=== PATIENT | female | born 1965 | race Caucasian/White ===

== ENCOUNTER 2019-01-26 18:17 | Emergency (ER) | payer MEDICAID ==
--- OUTSIDE RECORDS SUMMARY | 2019-01-26 18:19 | XMS REPORT ---
:1965 [facility] [address] [place] [address] Care Team Providers Name Role Phone Unavailable Unavailable Unavailable Problems This patient has no known problems. Allergies, Adverse Reactions, Alerts This patient has no known allergies or adverse reactions. Medications This patient has no known medications.
[2019-01-26] MEDS ORDERED: ONDANSETRON 4 MG/2 ML VIAL ONE (18:40)
[2019-01-26] MEDS ORDERED: FENTANYL CITR 100 MCG/2 ML ONE (18:40)
[2019-01-26] MEDS ORDERED: NA CHLORIDE 0.9% 1,000 ML ONE (18:40)
[2019-01-26 18:52] LABS: Absolute Lymphocytes (CBC) 2.6 K/uL (0.7-4.9); Basophils % 0.8 % (0-1.3); Eosinophils % 0.9 % (0-4.4); Hematocrit 40.9 % (36.0-45.0); Lymphocytes % 28.3 % (15.3-44.8); MPV 8.9 fL (7.6-11.3); Monocytes % 5.5 % (3.3-12.3); RBC Red Blood Cell Count 4.65 M/uL (3.86-4.86)
[2019-01-26 19:05] LABS: Potassium 4.4 mmol/L (3.5-5.1)
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
== END 2019-01-26 20:30 | disposition home or self-care (01) ==
LOC: ER 18:17
DX: S93.402A Sprain of unspecified ligament of left ankle, initial encounter (principal); S40.012A Contusion of left shoulder, initial encounter; S90.02XA Contusion of left ankle, initial encounter; V59.50XA Passenger in pick-up truck or van injured in collision with unspecified motor vehicles in traffic accident, initial encounter; I10 Essential (primary) hypertension
CPT/HCPCS: 36415; 70450; 71260; 72125; 74177; 80048; 85025; 96374; 96375; 99284; J2405; J3010; J7030; Q9967

== ENCOUNTER 2024-08-08 11:00 | Inpatient (IN) | payer OTHER ==
--- OUTSIDE RECORDS SUMMARY | 2024-08-08 11:03 | XMS REPORT | Clinical Summary ---
Author Name Unknown Organization [facility] Address [address] [place] [address] Care Team Providers Care Hadoop Consultant Name Role Phone Vidhi Cortez RN Unavailable Ha Butler MD Unavailable [phone] Allergies Active Allergy Reactions Criticality Noted Date Comments Codeine Shortness Of Breath High 01/08/2024 Medications morphine (MS CONTIN) 15 mg ER tabletIndications: Chest wall pain,Mass of right breast Take 1 tablet (15 mg) by mouth every 12 (twelve) hours. 30 tablet 4 Active morphine (MSIR) 15 mg IR tabletIndications: Chest wall pain,Mass of right breast Take HALF to ONE tablet (7.5-15 mg) by mouth every 4 (four) hours as needed for severe pain. 60 tablet 4 Active gabapentin (NEURONTIN) 100 mg capsuleIndications :Intractable breast pain Take 1 capsule (100 mg) by mouth every 12 (twelve) hours. 60 capsule 4 Active senna (SENOKOT) 8.6 mg tabletIndications: Slow transit constipation Take 2 tablets by mouth twice daily. 120 tablet 4 Active polyethylene glycol (Miralax) 17 gram/dose powderIndications: Slow transit constipation Take 17 g by mouth daily. 238 g 4 Active ondansetron (ZOFRAN-ODT) 8 mg disintegrating tabletIndications: Nausea Dissolve 1 tablet (8 mg) on the tongue every 8 (eight) hours as needed for nausea or vomiting. 30 tablet 4 Active morphine (MS CONTIN) 15 mg ER tabletIndications: Chest wall pain,Mass of right breast Take 1 tablet (15 mg) by mouth every 12 (twelve) hours. 30 tablet 4 024 Discontin ued(Reord er) morphine (MSIR) 15 mg IR tabletIndications: Chest wall pain,Mass of right breast Take HALF to ONE tablet (7.5-15 mg) by mouth every 4 (four) hours as needed for severe pain. 60 tablet 4 024 Discontin ued(Reord er) Active Problems Problem Noted Date Diagnosed Date Status post nephrectomy 01/09/2024 Personal history of cancer of kidney 01/09/2024 Hypertension 01/09/2024 Anxiety depression 01/09/2024 Intractable breast pain 01/09/2024 Anemia 01/09/2024 Mass of right breast 01/09/2024 Encounters Date Type Department Care Team Description 01/20/2024 Documentation [facility] [address] [place] [address], 5[address] [place] [address] Vidhi Cortez, KARIME 01/18/2024 2:20 AM CDT Ancillary Procedure Image [facility] [address] [place] [id number] Natalia Barriga MD, Cancer 01/18/2024 2:15 AM CDT Ancillary Procedure [facility] [address] [place] [id number] Natalia Barriga MD, MD Cancer 01/18/2024 2:10 AM CDT Ancillary Procedure [facility] [address] [place] [id number] Natalia Barriga MD, MD Cancer 01/10/2024 Orders Only [facility] [address] [place] [address], [facility] [place] [address] Tanisha Christensen RN 01/10/2024 Telephone [facility] [address] [place] [address], 5th [place] [address] Vidhi Cortez RN New Patient 01/09/2024 Travel 01/08/2024 10:40 PM CDT - 01/09/2024 3:17 PM CDT Emergency MAIN P06[facility] [address] [place] [address] Natalia Barriga MD, Samreen Amaya MD, Chest wall pain (Primary Dx); Mass of right breast; Bilateral lower leg edema; Intractable breast pain; Slow transit constipation; Normal diet; Nausea Discharge Disposition: Home 01/08/2024 Travel after 08/09/2023 Surgical History Surgery Date Site/Laterality Comments NEPHRECTOMY PARTIAL 09/01/2021 Left Family History Medical History Relation Name Comments Breast cancer Maternal Grandmother Esophageal cancer Mother Relation Name Status Comments Maternal Grandmother Mother Social History Tobacco Use Types Packs/Day Years Used Date Smoking Tobacco: Former Cigarettes Q uit: 2021 Passive Smoke Exposure: Past Smokeless Tobacco: Never Tobacco Cessation:Counseling Given: Not Answered Alcohol Use Standard Drinks/Week Comments Yes 0 (1 standard drink = 0.6 oz pur e alcohol) occasional Comments No Sex and Gender Information Value Date Recorded Sex Assigned at Not on file Legal Sex Female 10:37 PM CDT Gender Identity Not on file Sexual Orientation Not on file Obstetrics History Para Term AB IAB SAB Ectopic Multiple Livin g Live Births 3 3 Last Filed Vital Signs Vital Sign Reading Time Taken Comments Blood Pressure 134/85 01/09/2024 11:43 AM CDT Pulse 72 01/09/2024 11:43 AM CDT Temperature 36.3 C (97.3 F) 01/09/2024 11:43 AM C DT Respiratory Rate 18 01/09/2024 11:43 AM CDT Oxygen Saturation 95% 01/09/2024 11:43 AM CDT Inhaled Oxygen Concentration - - Weight 87 kg (191 lb 12.8 oz) 01/08/2024 10:39 P M CDT Height 154.9 cm (5' 1") 01/08/2024 10:39 PM CDT Body Mass Index 36.24 01/08/2024 10:39 PM CDT Plan of Treatment Health Maintenance Due Date Last Done Comments COVID-19 Vaccine (1 - 2024-2 5 season) 2024 Influenza Vaccine (#1) 2024 Pneumococcal Vaccine: Pediat rics (0 to 5 Years) and At-Risk Patients (6 to 64 Years) Aged Out No longer eligi ble based on patient's age to complete this topic Procedures Procedure Name Priority Date/Time Associated Diagnosis Comments CT ABDOMEN PELVIS W CONTRAST Routine 01/09/2024 2:[address] CHEST PULMONARY EMBOLISM W CONTRAST STAT 01/09/2024 2:41 AM CDT US LEG VENOUS DOPPLER BILATERAL STAT 01/09/2024 1:16 AM CDT XR CHEST 1 VW STAT 01/09/2024 12:27 AM CDT NT PRO BNP Add-On 01/08/2024 11:35 PM CDT .CBC Routine 01/08/2024 11:35 PM CDT PHOSPHORUS LEVEL Routine 01/08/2024 11:3 5 PM CDT MAGNESIUM LEVEL Routine 01/08/2024 11:35 PM CDT COMPREHENSIVE METABOLIC PANEL Routine 01/08/2024 11:35 PM CDT COMPLETE BLOOD COUNT W/ DIFFERENTIAL Routine 01/08/2024 11:[address] SPINE THORACIC Routine 12/18/2023 2:36 AM CDT Cancer OSI CT EXTREMITIES Routine 12/18/2023 2: 36 AM CDT Cancer OSI CT CHEST Routine 12/18/2023 2:36 AM CDT Cancer after 08/09/2023 Results * CT Chest Pulmonary Embolism with Contrast (01/09/2024 2:41 AM CDT) Anatomical Region Laterality Modality Chest Computed Tomogra phy 01/09/2024 3:09 AM CDT Impressions 01/09/2024 7:24 AM CDT 1. No pulmonary embolism is identified. No right heart strain. 2. Scattered groundglass lung opacities could be due to infection or inflammation process. 3. A 3 cm right breast mass suspicious for malignancy. Separate breast nodule. Recommend dedicated breast imaging with diagnostic mammogram and/or breast MRI. 4. Destructive lytic lesion of right posterior fifth rib with pathologic fracture. I personally reviewed the image(s) and the resident's interpretation and agree with the written report. ACTIONABLE ITEMS/RECOMMENDATIONS*: None. *An Actionable Finding is a finding that may be unrelated to the original reason for imaging but potentially actionable, meaning further investigation may be necessary. The Actionable Findings Vigilance Unit (AFVU) assists medical providers with responding to additional radiologic findings that are unexpected and potentially actionable. I personally reviewed these image(s) along with the resident's/fellow's interpretations, certify that if a procedure was performed I was physically present, and agree with the final report. Narrative 01/09/2024 7:24 AM CDT FULL RESULT: Examination: CT CHEST PULMONARY EMBOLISM W CONTRAST on 01/09/2024 2:41 AM. Clinical History: Renal cancer status post nephrectomy Right breast mass suspicious for malignancy Destructive lesion of right fifth posterior rib per EPIC note. Indication: DVT signs or symptoms, Chest pain, pleuritic, Pulmonary embolism suspected, Cancer pre-treatment assessment, Chest pain, dyspnea, abnormal CXR Comparison: Chest portable 01/09/2024 at 0000 hours; CT abdomen pelvis 01/09/2024 was reviewed. Technique: CT of the chest is performed using intravenous contrast. Findings: Lungs/Airways/Pleura: There is some respiratory motion artifact. No pulmonary embolism is identified in the pulmonary vasculature. Scattered groundglass opacities in bilateral lungs. Bibasilar subsegmental atelectasis. No pleural effusion. No pneumothorax. Neck/Mediastinum/Nodes/Heart: No pericardial effusion. No cardiomegaly. No right heart strain. The thyroid gland enhances normally. No supraclavicular, mediastinal, hilar or axillary lymphadenopathy. Upper abdomen: Cholecystectomy. The partially imaged liver, spleen and adrenal glands are within normal limits. Please see separately reported dedicated CT abdomen pelvis 01/09/2024. Bones/Soft Tissues: A 2.1 x 2.2 x 3 cm nodular mass in right breast likely corresponds with the reported malignancy (series 7, image 154 and series 9, image 279). A separate breast nodule measures 9 mm (image 111). Destructive lesion in the right posterior fifth rib (series 7, image 130) consistent with metastasis has associated pathologic fracture (image 112). Procedure Note Evelyne Elizabeth MD - 01/09/2024 FULL RESULT: Examination: CT CHEST PULMONARY EMBOLISM W CONTRAST on 01/09/2024 2:41AM. Clinical History: Renal cancer status post nephrectomy Right breast mass suspicious for malignancy Destructive lesion of right fifth posterior rib per EPIC note. Indication: DVT signs or symptoms, Chest pain, pleuritic, Pulmonaryembolism suspected, Cancer pre-treatment assessment, Chest pain, dyspnea,abnormal CXR Comparison: Chest portable 01/09/2024 at 0000 hours; CT abdomen pelvis01/09/2024 was reviewed. Technique: CT of the chest is performed using intravenous contrast. Findings: Lungs/Airways/Pleura: There is some respiratory motion artifact. Nopulmonary embolism is identified in the pulmonary vasculature. Scattered groundglass opacities in bilateral lungs. Bibasilar subsegmentalatelectasis. No pleural effusion. No pneumothorax. Neck/Mediastinum/Nodes/Heart: No pericardial effusion. No cardiomegaly. Noright heart strain. The thyroid gland enhances normally. No supraclavicular, mediastinal, hilar or axillary lymphadenopathy. Upper abdomen: Cholecystectomy. The partially imaged liver, spleen andadrenal glands are within normal limits. Please see separately reporteddedicated CT abdomen pelvis 01/09/2024. Bones/Soft Tissues: A 2.1 x 2.2 x 3 cm nodular mass in right breast likely corresponds withthe reported malignancy (series 7, image 154 and series 9, image 279). Aseparate breast nodule measures 9 mm (image 111). Destructive lesion in the right posterior fifth rib (series 7, image 130)consistent with metastasis has associated pathologic fracture ([id number]). IMPRESSION: 1. No pulmonary embolism is identified. No right heart strain. 2. Scattered groundglass lung opacities could be due to infection orinflammation process. 3. A 3 cm right breast mass suspicious for malignancy. Separate breastnodule. Recommend dedicated breast imaging with diagnostic mammogramand/or breast MRI. 4. Destructive lytic lesion of right posterior fifth rib with pathologicfracture. I personally reviewed the image(s) and the resident's interpretation andagree with the written report. ACTIONABLE ITEMS/RECOMMENDATIONS*: None. *An Actionable Finding is a finding that may be unrelated to the originalreason for imaging but potentially actionable, meaning furtherinvestigation may be necessary. The Actionable Findings Vigilance Unit(AFVU) assists medical providers with responding to additional radiologicfindings that are unexpected and potentially actionable. I personally reviewed these image(s) along with the resident's/fellow'sinterpretations, certify that if a procedure was performed I wasphysically present, and agree with the final report. us Natalia Barriga MD IMG CT ORDERABLES Final R esult * CT Abdomen Pelvis with Contrast (01/09/2024 2:41 AM CDT) Anatomical Region Laterality Modality Abdomen, Pelvis Computed Tomogra phy 01/09/2024 3:30 AM CDT Impressions 01/09/2024 10:24 AM CDT 1. No acute abnormality in the abdomen and pelvis. 2. A 2.7 cm minimally complex cyst (Bosniak IIF) in the interpolar region of right kidney. Consider follow-up with CT/MRI abdomen in 6 months. 3. Suspected endometrial polyp versus submucosal fibroid measuring up to 2 cm. 4. Please refer to CT chest for findings in thorax including the right breast mass ACTIONABLE ITEMS/RECOMMENDATIONS*: None. *An Actionable Finding is a finding that may be unrelated to the original reason for imaging but potentially actionable, meaning further investigation may be necessary. The Actionable Findings Vigilance Unit (AFVU) assists medical providers with responding to additional radiologic findings that are unexpected and potentially actionable. I personally reviewed these image(s) along with the resident's/fellow's interpretations, certify that if a procedure was performed I was physically present, and agree with the final report. Narrative 01/09/2024 10:24 AM CDT FULL RESULT: Examination: CT ABDOMEN PELVIS W CONTRAST on 01/09/2024 2:41 AM. Clinical History: 58-year-old female with history of renal cancer status post nephrectomy, now with right breast mass suspicious for malignancy and destructive lesion on right fifth posterior rib per EPIC note. Indication: Swelling, Suspected new cancer, h/o kidney cancer. Comparison: CT chest from same day. Technique: CT ABDOMEN PELVIS W CONTRAST. FINDINGS: Lower Thorax: Incompletely imaged focal asymmetry is noted in the right breast (series 3, image 1). Please refer to dedicated CT chest for findings in the thorax. Hepatobiliary: No suspicious hepatic lesion. No biliary dilatation. Prior cholecystectomy. Spleen: No splenomegaly. Pancreas: No mass or ductal dilatation. Adrenal Glands: No mass. Kidneys, Ureters, Bladder: No hydronephrosis. A 2.7 cm minimally complex cyst (Bosniak IIF) in interpolar region of right kidney (series 4, image 96). Multiple simple cysts in bilateral kidneys with the largest one in the interpolar region of the left kidney measuring 1.7 cm (series 4, image 99). No bladder mass. Gastrointestinal Tract: Small hiatal hernia. No obstruction. Pelvic Organs: Suspected endometrial polyp versus submucosal fibroid measuring up to 2 cm (series 5, image 116). Intrauterine tube in place. Peritoneum/Retroperitoneum: No ascites. Lymph Nodes: No lymphadenopathy. Musculoskeletal: . Degenerative changes in lumbar spine. Grade 1 anterior listhesis at L4-L5. Grade 2 anterolisthesis at L5-S1 Procedure Note Joni Jimenez MD - 01/09/2024 FULL RESULT: Examination: CT ABDOMEN PELVIS W CONTRAST on 01/09/2024 2:41 AM. Clinical History: 58-year-old female with history of renal cancer statuspost nephrectomy, now with right breast mass suspicious for malignancy anddestructive lesion on right fifth posterior rib per EPIC note. Indication: Swelling, Suspected new cancer, h/o kidney cancer. Comparison: CT chest from same day. Technique: CT ABDOMEN PELVIS W CONTRAST. FINDINGS: Lower Thorax: Incompletely imaged focal asymmetry is noted in the rightbreast (series 3, image 1). Please refer to dedicated CT chest forfindings in the thorax. Hepatobiliary: No suspicious hepatic lesion. No biliary dilatation. Priorcholecystectomy. Spleen: No splenomegaly. Pancreas: No mass or ductal dilatation. Adrenal Glands: No mass. Kidneys, Ureters, Bladder: No hydronephrosis. A 2.7 cm minimally complexcyst (Bosniak IIF) in interpolar region of right kidney (series 4, image96). Multiple simple cysts in bilateral kidneys with the largest one inthe interpolar region of the left kidney measuring 1.7 cm (series 4, image99). No bladder mass. Gastrointestinal Tract: Small hiatal hernia. No obstruction. Pelvic Organs: Suspected endometrial polyp versus submucosal fibroidmeasuring up to 2 cm (series 5, image 116). Intrauterine tube in place. Peritoneum/Retroperitoneum: No ascites. Lymph Nodes: No lymphadenopathy. Musculoskeletal: . Degenerative changes in lumbar spine. Grade 1 anteriorlisthesis at L4-L5. Grade 2 anterolisthesis at L5-S1 IMPRESSION: 1. No acute abnormality in the abdomen and pelvis. 2. A 2.7 cm minimally complex cyst (Bosniak IIF) in the interpolar regionof right kidney. Consider follow-up with CT/MRI abdomen in 6 months. 3. Suspected endometrial polyp versus submucosal fibroid measuring up to2 cm. 4. Please refer to CT chest for findings in thorax including the rightbreast mass ACTIONABLE ITEMS/RECOMMENDATIONS*: None. *An Actionable Finding is a finding that may be unrelated to the originalreason for imaging but potentially actionable, meaning furtherinvestigation may be necessary. The Actionable Findings Vigilance Unit(AFVU) assists medical providers with responding to additional radiologicfindings that are unexpected and potentially actionable. I personally reviewed these image(s) along with the resident's/fellow'sinterpretations, certify that if a procedure was performed I wasphysically present, and agree with the final report. us Natalia Barriga MD IMG CT ORDERABLES Final R esult * US Leg Venous Doppler Bilateral (01/09/2024 1:16 AM CDT) Anatomical Region Laterality Modality Leg, Extremity Ultrasound 01/09/2024 2:13 AM CDT Impressions 01/09/2024 9:51 AM CDT No deep venous thrombosis in the bilateral lower extremities. ACTIONABLE ITEMS/RECOMMENDATIONS*: None. *An Actionable Finding is a finding that may be unrelated to the original reason for imaging but potentially actionable, meaning further investigation may be necessary. The Actionable Findings Vigilance Unit (AFVU) assists medical providers with responding to additional radiologic findings that are unexpected and potentially actionable. I personally reviewed these image(s) along with the resident's/fellow's interpretations, certify that if a procedure was performed I was physically present, and agree with the final report. Narrative 01/09/2024 9:51 AM CDT Examination: US LEG VENOUS DOPPLER BILATERAL on 01/09/2024 1:16 AM. Clinical History: Chest wall pain Mass of right breast Bilateral lower leg edema. Indication: Edema, Pain, leg swelling, L>R. Comparison: None available. TECHNIQUE: Sonographic evaluation of the deep veins of the bilateral lower extremities is performed assessing grayscale appearance, color and spectral Doppler flow and compressibility. FINDINGS: The bilateral common femoral, femoral, proximal deep femoral, and popliteal veins and saphenofemoral junction demonstrate color flow and compressibility. The visualized bilateral peroneal, anterior tibial and posterior tibial veins demonstrate color flow. Procedure Note Lynnette Mann MD - 01/09/2024 Examination: US LEG VENOUS DOPPLER BILATERAL on 01/09/2024 1:16 AM. Clinical History: Chest wall pain Mass of right breast Bilateral lower leg edema. Indication: Edema, Pain, leg swelling, L>R. Comparison: None available. TECHNIQUE: Sonographic evaluation of the deep veins of the bilaterallower extremities is performed assessing grayscale appearance, color andspectral Doppler flow and compressibility. FINDINGS: The bilateral common femoral, femoral, proximal deep femoral, andpopliteal veins and saphenofemoral junction demonstrate color flow andcompressibility. The visualized bilateral peroneal, anterior tibial and posterior tibialveins demonstrate color flow. IMPRESSION: No deep venous thrombosis in the bilateral lower extremities. ACTIONABLE ITEMS/RECOMMENDATIONS*: None. *An Actionable Finding is a finding that may be unrelated to the originalreason for imaging but potentially actionable, meaning furtherinvestigation may be necessary. The Actionable Findings Vigilance Unit(AFVU) assists medical providers with responding to additional radiologicfindings that are unexpected and potentially actionable. I personally reviewed these image(s) along with the resident's/fellow'sinterpretations, certify that if a procedure was performed I wasphysically present, and agree with the final report. us Natalia Barriga MD [facility] [place] ORDERABLES Final R esult * X-ray Chest 1 View (01/09/2024 12:27 AM CDT) Anatomical Region Laterality Modality Chest Digital Radiogra phy 01/09/2024 12:3 3 AM CDT Impressions 01/09/2024 8:58 AM CDT No acute or metastatic disease. ACTIONABLE ITEMS/RECOMMENDATIONS: None. I personally reviewed these image(s) along with the resident's/fellow's interpretations, certify that if a procedure was performed I was physically present, and agree with the final report. Narrative 01/09/2024 8:58 AM CDT FULL RESULT: Examination: XR Chest, 1 View Portable, 01/09/2024 12:27 AM. Clinical History: Renal cell carcinoma. Indication: Chest pain. Comparison: None. Technique: Portable AP chest, 01/09/2024. Findings: The lungs are clear. No pleural effusion is present. The heart is normal in size. The left hemidiaphragm is elevated. Degenerative changes are noted in the thoracic spine. Procedure Note Arturo Rossi MD - 01/09/2024 FULL RESULT: Examination: XR Chest, 1 View Portable, 01/09/2024 12:27 AM. Clinical History: Renal cell carcinoma. Indication: Chest pain. Comparison: None. Technique: Portable AP chest, 01/09/2024. Findings: The lungs are clear. No pleural effusion is present. The heart is normalin size. The left hemidiaphragm is elevated. Degenerative changes arenoted in the thoracic spine. IMPRESSION: No acute or metastatic disease. ACTIONABLE ITEMS/RECOMMENDATIONS: None. I personally reviewed these image(s) along with the resident's/fellow'sinterpretations, certify that if a procedure was performed I wasphysically present, and agree with the final report. us Natalia Barriga MD IMG DIAGNOSTIC IMAGING OR DERABLES Final Result * (ABNORMAL) .CBC (01/08/2024 11:35 PM CDT) White Blood Cell 6.4 4.1 - 10.5 K/uL 01/09/2024 12:28 AM CDT [facility] Red Blood Cell 4.30 3.99 - 5.46 M/uL 01/09/2024 12:28 AM T [facility] Hemoglobin 12.1(L) 12.2 - 15.3 g/dL 01/09/2024 12:28 AM T [facility] Hematocrit 37.7 36.4 - 46.8 % 01/09/2024 12:28 AM T [facility] Mean Cell Volume 88 82 - 99 fL 01/09/2024 12:28 AM T [facility] Mean Cell Hemoglobin 28.1 26.6 - 33.2 pg 01/09/2024 12:28 AM T [facility] Mean Cell Hemoglobin Concentration 32.1 31.1 - 35.2 g/dL 01/09/2024 12:28 AM T [facility] RDW-SD 42.5 37.5 - 49.7 fL 01/09/2024 12:28 AM [facility] Red Cell Diameter Width 13.2 11.6 - 15.5 % 01/09/2024 12:28 AM T [facility] Platelet 338 160 - 397 K/uL 01/09/2024 12:28 AM T [facility] Mean Platelet Volume 9.7 9.1 - 12.6 fL 01/09/2024 12:28 AM T [facility] INRBC 0.0 0.0 - 0.1 /100 WBC 01/09/2024 12:28 AM [facility] Comment: The INRBC (instrument NRBC) value reflects the enumeration of nucleated red blood cells contained in a 200uL sample of whole blood analyzed by the instrument. This value may differ from the NRBC value reported in a manual differential, which is based on a 100 cell differential. Neutrophil % 54.8 43.2 - 72.7 % 01/09/2024 12:28 AM CDT [facility] Lymphocyte % 33.6 16.8 - 46.2 % 01/09/2024 12:28 AM CDT [facility] Monocyte % 7.2 5.1 - 12.5 % 01/09/2024 12:28 AM CDT [facility] Eosinophil % 3.6 0.4 - 6.3 % 01/09/2024 12:28 AM CDT [facility] Basophil % 0.6 0.2 - 1.4 % 01/09/2024 12:28 AM CDT [facility] IGRE % 0.2 0.1 - 1.5 % 01/09/2024 12:28 AM CDT [facility] Comment:The IGRE% includes M etamyelocytes, Myelocytes and Promyelocytes. Neutrophil Abs 3.48 1.95 - 7.25 K/uL 01/09/2024 12:28 AM CDT [facility] Lymphocyte Abs 2.14 1.01 - 3.24 K/uL 01/09/2024 12:28 AM CDT [facility] Monocyte Abs 0.46 0.24 - 0.85 K/uL 01/09/2024 12:28 AM CDT [facility] Eosinophil Abs 0.23 0.02 - 0.50 K/uL 01/09/2024 12:28 AM CDT [facility] Basophil Abs 0.04 0.02 - 0.09 K/uL 01/09/2024 12:28 AM CDT [facility] [facility] IG Abs 0.01 0.01 - 0.12 K/uL 01/09/2024 12:28 AM CDT [facility] Blood Peripheral blood specimen / Unknown Venipuncture / Unknown 01/08/2024 11:35 PM CDT 01/08/2024 11:39 PM CDT us Natalia Barriga MD LAB BLOOD ORDERABLES Hiral perez Result [facility] Unless otherwise noted, all lab tests performed by: Division of Pathology and Laboratory Medicine [address] [place] [address] * Comprehensive Metabolic Panel (01/08/2024 11:35 PM CDT) Bilirubin Total <0.3 0.0 - 1.2 mg/dL 01/09/2024 12:22 AM CDT [facility] Comment:Indocyanine Green (I CG) may cause falsely elevated bilirubin results. Total and direct bilirubin must not be measured from samples containing indocyanine green. False elevation of total bilirubin can be seen in patients with IgG concentrations above 28 g/L. eGFR 87 >=60 mL/min/1.7 3 sq. m 01/09/2024 12:22 AM CDT [facility] Comment: The eGFRcr is calculated with the 2020 CKD-EPI creatinine equation using creatinine, patient's age, and sex for adults 18 years of age and older. Other factors, especially muscle mass, may affect accuracy and need to be considered. According to the Kidney Disease: Improving Global Outcomes (KDIGO) CKD Work Group 2012 Clinical Practice Guideline, chronic kidney disease (CKD) is defined as the abnormalities of kidney structure or function, present for more than 3 months, with implications for health. CKD should be classified by cause, GFR category, and albuminuria category. KDIGO guidelines provide the following GFR categories. Stage / Description / GFR mL/min/1.73 m2: G1* / Normal or high / >= 90 G2* / Mildly decreased / 60-89 G3a / Mildly to moderately decreased / 45-59 G3b / Moderately to severely decreased / 30-44 G4 / Severely decreased / 15-29 G5 / Kidney failure / <15 *In the absence of evidence of kidney damage, neither G1 nor G2 fulfill criteria for CKD. Tot Protein 7.3 6.4 - 8.3 gm/dL 01/09/2024 12:22 AM CDT [facility] Calcium Level Total 9.2 8.2 - 10.2 mg/dL 01/09/2024 12:22 AM CDT [facility] Alkaline Phosphatase 104 35 - 104 U/L 01/09/2024 12:22 AM CDT [facility] Albumin Level 4.1 3.5 - 5.2 gm/dL 01/09/2024 12:22 AM CDT [facility] AST 26 <=32 U/L 01/09/2024 12:22 AM CDT [facility] ALT 17 <=33 U/L 01/09/2024 12:22 AM CDT [facility] Sodium Level 141 136 - 145 mmol/L 01/09/2024 12:22 AM CDT [facility] Potassium Level 3.9 3.4 - 4.5 mmol/L 01/09/2024 12:22 AM CDT [facility] Chloride 103 98 - 107 mmol/L 01/09/2024 12:22 AM CDT [facility] CO2 27 22 - 29 mmol/L 01/09/2024 12:22 AM CDT [facility] Anion Gap 11 4 - 14 mmol/L 01/09/2024 12:22 AM CDT [facility] Creatinine 0.79 0.51 - 0.95 mg/dL 01/09/2024 12:22 AM CDT [facility] BUN 23 6 - 23 mg/dL 01/09/2024 12:22 AM CDT [facility] Glucose Level 86 70 - 99 mg/dL 01/09/2024 12:22 AM T [facility] Comment: Effective 02/25/16, the glucose reference intervals have been updated based on Citizen Of [place] Diabetes Association guidelines (Standards of Medical Care in Diabetes 2016. Diabetes Care 2016; 39: S13-S22). Fasting blood glucose: Normal: 70-99 mg/dL Impaired fasting glucose (increased risk for diabetes or pre-diabetes): 100-125 mg/dL Diabetes mellitus: >/=126 mg/dL Random blood glucose: Normal: 70-199 mg/dL Note: Random glucose >100 mg/dL is associated with increased risk for diabetes. Blood Peripheral blood specimen / Unknown Venipuncture / Unknown 01/08/2024 11:35 PM CDT 01/08/2024 11:39 PM CDT us Natalia Barriga MD LAB BLOOD ORDERABLES Hiral perez Result [facility] Unless otherwise noted, all lab tests performed by: Division of Pathology and Laboratory Medicine [address] [place] [id number] * NT-Pro BNP (In-House) (01/08/2024 11:35 PM CDT) NT-ProBNP 40 <=125 pg/mL 01/09/2024 1:19 AM CDT [facility] Blood Peripheral blood specimen / Unknown Venipuncture / Unknown 01/08/2024 11:35 PM CDT 01/08/2024 11:39 PM CDT us Natalia Barriga MD LAB BLOOD ORDERABLES Hiral l Result Performing Organization Address City/[facility]/ZIP Co de Phone Number [facility] Unless otherwise noted, all lab tests performed by: Division of Pathology and Laboratory Medicine [address] [place] [address] * Phosphorus Level (01/08/2024 11:35 PM CDT) Phosphorus Level 3.2 2.5 - 4.5 mg/dL 01/09/2024 12:22 AM CDT [facility] Blood Peripheral blood specimen / Unknown Venipuncture / Unknown 01/08/2024 11:35 PM CDT 01/08/2024 11:39 PM CDT us Natalia Barriga MD LAB BLOOD ORDERABLES Hiral l Result [facility] Unless otherwise noted, all lab tests performed by: Division of Pathology and Laboratory Medicine [address] [place] [id number] * Magnesium Level (01/08/2024 11:35 PM CDT) Magnesium Level 2.1 1.6 - 2.6 mg/dL 01/09/2024 12:23 AM CDT [facility] Blood Peripheral blood specimen / Unknown Venipuncture / Unknown 01/08/2024 11:35 PM CDT 01/08/2024 11:39 PM CDT us Natalia Barriga MD LAB BLOOD ORDERABLES Hiral l Result [facility] Unless otherwise noted, all lab tests performed by: Division of Pathology and Laboratory Medicine [facility] [place] [address] * OSI CT Spine Thoracic (12/18/2023 2:36 AM CDT) Narrative Systemgenerated, Documentation - 01/18/2024 2:36 AM CDT Study acquired at another institution. For comparison only. No MD Seals originated interpretation requested or available. Natalia Barriga MD IMG OUTSIDE IMAGE ORDERAB LES Final Result * OSI CT Extremities (12/18/2023 2:36 AM CDT) Narrative Systemgenerated, Documentation - 01/18/2024 2:36 AM CDT Study acquired at another institution. For comparison only. No MD Seals originated interpretation requested or available. Natalia Barriga MD IMG OUTSIDE IMAGE ORDERAB LES Final Result * OSI CT Chest (12/18/2023 2:36 AM CDT) Narrative Systemgenerated, Documentation - 01/18/2024 2:36 AM CDT Study acquired at another institution. For comparison only. No MD Seals originated interpretation requested or available. Natalia Barriga MD IMG OUTSIDE IMAGE ORDERAB LES Final Result after 08/09/2023 Insurance [facility] MEDICA[employer] Advance Directives * Full Code (Latest Code Status on File) Date Activated Date Inactivated Comments 01/09/2024 2:02 AM 01/09/2024 5:17 PM Care Teams Hadoop Consultant Relationship Specialty Start Date End Date Ha Butler MD [address] [place] [id number] PCP - External Primary Care Provider Internal Medicine 01/10/24 Vidhi Cortez, RN [facility] [place] [address] [email or web address] Intake Nurse Navigator Nursing 01/10/24 01/19/24
[2024-08-08] MEDS ORDERED: KETOROLAC 30 MG/ML INJ ONE (11:36)
[2024-08-08] MEDS ORDERED: HYDROMORPHONE HCL 1 MG/ML INJ ONE ×2 (11:36→14:52)
[2024-08-08] MEDS ORDERED: ONDANSETRON 4 MG/2 ML VIAL ONE (11:36)
[2024-08-08 12:03] LABS: Absolute Eosinophils 0.1 K/uL (0-0.5); Absolute Lymphocytes (CBC) 1.1 K/uL (0.7-4.9); Absolute Monocytes 0.6 K/uL (0.1-1.3); Absolute Neutrophil 4.2 K/uL (1.8-8.0); Basophils % 0.5 % (0-1.3); Eosinophils % 1.6 % (0-4.4); Hematocrit 38.8 % (36.0-45.0); Hemoglobin 12.6 g/dL (12.0-15.0); Lymphocytes % 18.4 % (15.3-44.8); MCHC 32.5 g/dL (32.0-36.0); MCV 89.2 fL (80-100); MPV 7.6 fL (7.6-11.3); Monocytes % 9.5 % (3.3-12.3); Nucleated Red Blood Cells % 0.1 % (0-0); Platelets 316 thou/uL (152-406); RBC Red Blood Cell Count 4.35 M/uL (3.86-4.86); Red Cell Distribution Width 15.9 % (12.1-15.2)
[2024-08-08 12:15] LABS: Albumin 3.4 g/dL (3.4-5.0); Albumin/Globulin Ratio 0.8 (1.1-1.8); Anion Gap 6.1 mEq/L (5.0-15.0); Bilirubin Total 0.3 mg/dL (0.2-1.0); Globulin 4.2 g/dL (2.3-3.5); Potassium 4.1 mEq/L (3.5-5.1); Protein, Total 7.6 g/dL (6.4-8.2)
--- NOTE | 2024-08-08 14:44 | RAD REPORT ---
EXAMINATION: MRI LUMBAR SPINE WITHOUT CONTRAST CLINICAL INDICATION: LS pain h/o breast cancer w/ mets TECHNIQUE: Multiplanar multisequence MR images were obtained of the lumbar spine WITHOUT intravenou s contrast. Unless otherwise specified, incidental findings do not require dedicated imaging follow-up. COMPARISON: No prior exam. FINDINGS: For purposes of this dictation, it is assumed that there are 5 non rib-bearing lumbar type vertebrae, and the most caudal fully segmented lumbar vertebra is labeled L5. ALIGNMENT: 6 mm degenerative anterolisthesis L4 on 5. 10 mm degenerative anterolisthesis L5 on S1. BONE: An area of abnormal marrow signal is noted is seen involving the right inferior sacral alar abu tting the right aspect of the sacral canal. This lesion measures 35 x 17 mm and extends inferiorly involving the right sacral levels. Soft tissue is seen extending through the anterior cortex of the r ight inferior sacrum and likely invading the anterior musculature. This these abnormal areas of soft tissue signal enhancement after contrast compatible with probable metastatic disease. There is a similar smaller enhancing lesion inferior left sacral alar. CORD: No abnormal signal in the cord. The conus medullaris terminates at a normal level. The nerve ro ots of the cauda equina appear normal. IMPRESSION: Abnormal bone lesions involving the sacrum bilaterally, larger on the right, with postcontrast enhanc ement most likely related to metastatic disease/neoplasia. Significant lower lumbar degenerative spondylosis with anterolisthesis L4 on 5 and L5 on S1.
--- NOTE | 2024-08-08 15:25 | ER ---
Nurse's Notes [facility] Name: Cony Gerber Age: 58 yrs Sex: Female : 1965 Arrival Date: 08/08/2024 Time: 11:00 Bed 5 Private MD: Diagnosis: Sacral metastatic cancer disease, intractable pain Presentation: 08/08 11:11 Chief complaint: Patient states: has hx of stage 4 breast cancer , has severe tailbone iw pain since this morning, she had a hard BM yesterday , denies injury , she tried to have a BM today and nothing came out , is on morphine pills and fentanyl patch for pain , not helping. Coronavirus screen: At this time, the client does not indicate any symptoms associated with coronavirus-19. Ebola Screen: No symptoms or risks identified at this time. Initial Sepsis Screen: Does the patient meet any 2 criteria? No. Patient's initial sepsis screen is negative. Does the patient have a suspected source of infection? No. Patient's initial sepsis screen is negative. Risk Assessment: Do you want to hurt yourself or someone else? Patient reports no desire to harm self or others. Onset of symptoms was August 08, 2024. 11:11 Method Of Arrival: Wheelchair iw 11:11 Acuity: RACHEL 3 iw Historical: - Allergies: 11:13 Codeine; iw - PMHx: 11:13 Hepatitis; Hypertension; breast cancer; kidney cancer; iw - PSHx: 11:13 right knee; Cholecystectomy; tubal ligation; partial nephrectomy -left; iw - Immunization history:: Adult Immunizations up to date. - Infectious Disease History:: Denies. - Social history:: Smoking status: Reported history of juuling and/or vaping. Screenin:17 [facility] ED Fall Risk Assessment (Adult) History of falling in the last 3 months, rs5 including since admission Yes- single mechanical fall (1 pt) Confusion or Disorientation No (0 pts) Intoxicated or Sedated No (0 pts) Impaired Gait Yes (1 pt) Mobility Assist Device Used Yes (1 pt) Altered Elimination No (0 pt) Score/Fall Risk Level 3 or more points = High Risk Oriented to surroundings, Maintained a safe environment, Hourly rounding (assess needs \T\ fall precautionary measures) done. 11:17 Abuse screen: Denies threats or abuse. Nutritional screening: No deficits noted. rs5 Tuberculosis screening: No symptoms or risk factors identified. Assessment: 11:17 General: Appears in no apparent distress. uncomfortable, Behavior is calm, cooperative. rs5 Pain: Complains of pain in lower back Pain currently is 8 out of 10 on a pain scale. Quality of pain is described as aching. 11:17 Neuro: Level of Consciousness is awake, alert, obeys commands, Oriented to person, rs5 place, time, situation. Cardiovascular: Patient's skin is warm and dry. Respiratory: Airway is patent Respiratory effort is even, unlabored, Respiratory pattern is regular, symmetrical. GI: Abdomen is round non-distended, Abd is soft and non tender X 4 quads. : No signs and/or symptoms were reported regarding the genitourinary system. EENT: No signs and/or symptoms were reported regarding the EENT system. Derm: Skin is intact, Skin is pink, warm \T\ dry. Musculoskeletal: Range of motion: intact in all extremities. 12:27 Reassessment: Patient and/or family updated on plan of care and expected duration. Pain rs5 level reassessed. Patient is alert, oriented x 3, equal unlabored respirations, skin warm/dry/pink. 13:43 Reassessment: Patient and/or family updated on plan of care and expected duration. Pain rs5 level reassessed. Patient is alert, oriented x 3, equal unlabored respirations, skin warm/dry/pink. 14:55 Reassessment: Patient and/or family updated on plan of care and expected duration. Pain rs5 level reassessed. Patient is alert, oriented x 3, equal unlabored respirations, skin warm/dry/pink. 15:50 Reassessment: Patient and/or family updated on plan of care and expected duration. Pain rs5 level reassessed. Patient is alert, oriented x 3, equal unlabored respirations, skin warm/dry/pink. Vital Signs: 11:11 BP 162 / 111; Pulse 95; Resp 20; Temp 98.1; Pulse Ox 100% ; Weight 81.19 kg; Height 4 iw ft. 11 in. ; Pain 10/10; 12:30 BP 125 / 81; Pulse 74; Resp 17; Pulse Ox 98% on R/A; rs5 13:01 BP 136 / 86; Pulse 81; Resp 18; Pulse Ox 97% on R/A; rs5 13:44 BP 125 / 67; Pulse 66; Resp 17; Pulse Ox 97% ; rs5 15:29 BP 127 / 75; Pulse 66; Resp 14; Pulse Ox 97% on R/A; ko1 11:11 Body Mass Index 36.15 (81.19 kg, 149.86 cm) iw 11:11 Pain Scale: Adult iw ED Course: 11:02 Patient arrived in ED. ra3 11:04 Iain Varela MD is Attending Physician. sp3 11:13 Triage completed. iw 11:15 Arm band placed on. iw 11:17 Patient has correct armband on for positive identification. Placed in gown. Bed in low rs5 position. Call light in reach. Side rails up X2. 11:17 No provider procedures requiring assistance completed. rs5 11:18 Inserted saline lock: 20 gauge in left antecubital area, using aseptic technique. Blood rs5 collected. Flushed with 10 mL NS. 11:33 Gurjit Willett, RN is Primary Nurse. rs5 14:10 Spine Lumbar W/Wo Cont In Process Unspecified. EDMS 15:25 Cam Soto MD is Hospitalizing Provider. sp3 15:53 Provided Education on: admit. ko1 15:53 Patient admitted, IV remains in place. ko1 Administered Medications: 11:49 Drug: TORadol - Ketorolac IVP 15 mg IVP once Route: IVP; Site: left antecubital; ko1 12:10 Follow up: Response: No adverse reaction; Pain is decreased rs5 11:49 Drug: HYDROmorphone IVP 1 mg IVP once Route: IVP; Site: left antecubital; ko1 12:10 Follow up: Response: No adverse reaction; Pain is decreased rs5 11:49 Drug: Ondansetron IVP 4 mg IVP once; over 2 minutes Route: IVP; Site: left antecubital; ko1 12:05 Follow up: Response: No adverse reaction rs5 15:01 Drug: HYDROmorphone IVP 1 mg IVP once Route: IVP; Site: left antecubital; rs5 15:16 Follow up: Response: No adverse reaction ko1 Medication: 13:43 VIS not applicable for this client. rs5 Outcome: 15:25 Decision to Hospitalize by Provider. sp3 15:53 Condition: improved ko1 15:53 Instructed on the need for admit, 17:34 Admitted to Med/surg accompanied by tech, via wheelchair, room 205, with chart, ko1 17:42 Patient left the ED. ko1 Signatures: Dispatcher [employer] EDThelma Hernandez RN RN iw Iain Varela MD MD sp3 Kelsie Bender RN RN ko1 Gurjit Willett RN RN rs5 Paz Nance ra3 Corrections: (The following items were deleted from the chart) 18:02 16:00 Reassessment: Patient and/or family updated on plan of care and expected rs5 duration. Pain level reassessed. Patient is alert, oriented x 3, equal unlabored respirations, skin warm/dry/pink. rs5
--- NOTE | 2024-08-08 15:26 | EDPHYS ---
Physician Documentation [facility] Name: Cony Gerber Age: 58 yrs Sex: Female : 1965 Arrival Date: 08/08/2024 Time: 11:00 Bed 5 Private MD: ED Physician Iain Varela HPI: 08/08 11:33 This 58 yrs old Female presents to ER via Wheelchair with complaints of Low Back Pain - sp3 tailbone pain. 11:33 58-year-old female with a history of stage IV breast cancer, renal cancer, sp3 hypertension, hepatitis now presents to the ED with chief complaint sacral pain starting yesterday. Patient states she had a "hard bowel movement" which made this significantly worse. She does have lumbosacral involvement and her cancer based on her understanding. She denies any loss of bowel or bladder control, neurological dysfunction, inability to walk or any other symptoms similar. Review of systems negative for headache, fever, URI symptoms, chest pain, shortness of breath, intra-abdominal pain, mid or upper back pain, syncope, near syncope, travel history, trauma, known sick contacts, or any other signs or symptoms on ROS at this time.. Historical: - Allergies: 11:13 Codeine; iw - PMHx: 11:13 Hepatitis; Hypertension; breast cancer; kidney cancer; iw - PSHx: 11:13 right knee; Cholecystectomy; tubal ligation; partial nephrectomy -left; iw - Immunization history:: Adult Immunizations up to date. - Infectious Disease History:: Denies. - Social history:: Smoking status: Reported history of juuling and/or vaping. ROS: 11:34 Constitutional: Negative for fever, chills, and weight loss, Eyes: Negative for injury, sp3 pain, redness, and discharge, ENT: Negative for injury, pain, and discharge, Neck: Negative for injury, pain, and swelling, Cardiovascular: Negative for chest pain, palpitations, and edema, Respiratory: Negative for shortness of breath, cough, wheezing, and pleuritic chest pain, Abdomen/GI: Negative for abdominal pain, nausea, vomiting, diarrhea, and constipation, MS/Extremity: Negative for injury and deformity, Skin: Negative for injury, rash, and discoloration, Neuro: Negative for headache, weakness, numbness, tingling, and seizure, Psych: Negative for depression, anxiety, suicide ideation, homicidal ideation, and hallucinations, Allergy/Immunology: Negative for hives, rash, and allergies, Endocrine: Negative for neck swelling, polydipsia, polyuria, polyphagia, and marked weight changes, Hematologic/Lymphatic: Negative for swollen nodes, abnormal bleeding, and unusual bruising, 11:34 All other systems are negative, Exam: 11:34 Constitutional: This is a well developed, well nourished patient who is awake, alert, sp3 and in no acute distress. Head/Face: Normocephalic, atraumatic. Eyes: Pupils equal round and reactive to light, extra-ocular motions intact. Lids and lashes normal. Conjunctiva and sclera are non-icteric and not injected. Cornea within normal limits. Periorbital areas with no swelling, redness, or edema. Neck: Trachea midline, no thyromegaly or masses palpated, and no cervical lymphadenopathy. Supple, full range of motion without nuchal rigidity, or vertebral point tenderness. No Meningismus. Chest/axilla: Normal chest wall appearance and motion. Nontender with no deformity. No lesions are appreciated. Cardiovascular: Regular rate and rhythm with a normal S1 and S2. No gallops, murmurs, or rubs. Normal PMI, no JVD. No pulse deficits. Respiratory: Lungs have equal breath sounds bilaterally, clear to auscultation and percussion. No rales, rhonchi or wheezes noted. No increased work of breathing, no retractions or nasal flaring. Abdomen/GI: Soft, non-tender, with normal bowel sounds. No distension or tympany. No guarding or rebound. No evidence of tenderness throughout. Skin: Warm, dry with normal turgor. Normal color with no rashes, no lesions, and no evidence of cellulitis. MS/ Extremity: Pulses equal, no cyanosis. Neurovascular intact. Full, normal range of motion. Neuro: Awake and alert, GCS 15, oriented to person, place, time, and situation. Cranial nerves II-XII grossly intact. Motor strength 5/5 in all extremities. Sensory grossly intact. Cerebellar exam normal. Normal gait. 11:34 Back: No pain to palpation of the external structures of the back. No pain on straight leg raise., Vital Signs: 11:11 BP 162 / 111; Pulse 95; Resp 20; Temp 98.1; Pulse Ox 100% ; Weight 81.19 kg; Height 4 iw ft. 11 in. ; Pain 10/10; 12:30 BP 125 / 81; Pulse 74; Resp 17; Pulse Ox 98% on R/A; rs5 13:01 BP 136 / 86; Pulse 81; Resp 18; Pulse Ox 97% on R/A; rs5 13:44 BP 125 / 67; Pulse 66; Resp 17; Pulse Ox 97% ; rs5 15:29 BP 127 / 75; Pulse 66; Resp 14; Pulse Ox 97% on R/A; ko1 11:11 Body Mass Index 36.15 (81.19 kg, 149.86 cm) iw 11:11 Pain Scale: Adult iw MDM: 11:16 Medical Screening Exam initiated sp3 11:35 Data reviewed: vital signs, nurses notes, lab test result(s), radiologic studies. ED sp3 course: 58-year-old female with sacral pain for 24 hours in the setting of metastatic cancer. Differential diagnosis includes lumbosacral lesion versus nontraumatic fracture versus GI pathology versus musculoskeletal. CT scan is down at this facility and MRI of the LS spine has been ordered. Routine labs also pending. Dilaudid, ketorolac, ondansetron IV for symptomatic control. Disposition pending workup and patient course. Blood pressure noted to be elevated however patient does have history of hypertension.. 15:24 ED course: Second Dilaudid given. Patient is having severe pain. Unlikely to be able to sp3 conduct ADLs at home. Will place in 23-hour observation for intractable pain until home regimen can be determined.. 08/08 11:27 Order name: CBC with Diff; Complete Time: 12:15 sp3 08/08 11:27 Order name: CMP; Complete Time: 12:15 sp3 08/08 11:27 Order name: Lipase; Complete Time: 12:15 sp3 08/08 16:49 Order name: Urinalysis w/ reflexes EDMS 08/08 16:49 Order name: CBC with Automated Diff EDMS 08/08 16:49 Order name: CBC with Automated Diff EDMS 08/08 16:49 Order name: Comprehensive Metabolic Panel EDMS 08/08 16:49 Order name: Comprehensive Metabolic Panel EDMS 08/08 16:49 Order name: Magnesium EDMS 08/08 16:49 Order name: Magnesium EDMS 08/08 14:10 Order name: Spine Lumbar W/Wo Cont; Complete Time: 14:47 EDMS 08/08 11:27 Order name: IV Saline Lock; Complete Time: 11:49 sp3 08/08 11:27 Order name: Labs collected and sent; Complete Time: 11:49 sp3 Administered Medications: 11:49 Drug: TORadol - Ketorolac IVP 15 mg IVP once Route: IVP; Site: left antecubital; ko1 12:10 Follow up: Response: No adverse reaction; Pain is decreased rs5 11:49 Drug: HYDROmorphone IVP 1 mg IVP once Route: IVP; Site: left antecubital; ko1 12:10 Follow up: Response: No adverse reaction; Pain is decreased rs5 11:49 Drug: Ondansetron IVP 4 mg IVP once; over 2 minutes Route: IVP; Site: left antecubital; ko1 12:05 Follow up: Response: No adverse reaction rs5 15:01 Drug: HYDROmorphone IVP 1 mg IVP once Route: IVP; Site: left antecubital; rs5 15:16 Follow up: Response: No adverse reaction ko1 Disposition Summary: 08/08/24 15:25 Hospitalization Ordered Notes: Hospitalization Status: Observation sp3 Provider: Cam Soto3 [facility] Condition: Stable sp3 Problem: an acute exacerbation sp3 Symptoms: have worsened sp3 Bed/Room Type: Standard sp3 Room Assignment: 205(08/08/24 16:52) em1 Diagnosis - Sacral metastatic cancer disease, intractable pain sp3 Forms: - Medication Reconciliation Form sp3 - SBAR form sp3 - Leadership Thank You Letter sp3 Signatures: Dispatcher [employer] EDMS Thelma Curran, Ray Rueda RN em1 Iain Varela MD MD sp3 Kelsie Bender RN RN ko1 Gurjit Willett RN RN rs5 Corrections: (The following items were deleted from the chart) 11:27 11:27 Lumbar Spine Wo Con+MRI.RAD.BRZ ordered. EDMS EDMS 11: 11:27 CBC+H.LAB.BRZ ordered. EDMS EDMS 11: 11:27 COMPREHENSIVE METABOLIC PANEL+C.LAB.BRZ ordered. EDMS EDMS 11: LIPASE+C.LAB.BRZ ordered. EDMS EDMS 16:47 15:25 sp3 em1 16:52 16:47 215 em1 em1
--- NOTE | 2024-08-08 15:39 | P.HP ---
Certification for Inpatient Patient admitted to: Observation Practitioner: I am a practitioner with admitting privileges, knowledge of patient current condition, hospital course, and medical plan of care. Services: Services provided to patient in accordance with Admission requirements found in Title 42 Section 412.3 of the Code of Federal Regulations Patient History Date of Service: 08/08/24 Reason for admission: intractable back pain History of Present Illness: 58 yrs old Female with past medical history of Hepatitis; Hypertension; stage IV breast cancer; kidney cancer with partial nephrectomy; presents to ER via Wheelchair with complaints of Low Back Pain. She reports low back pain started last night that has gotten progressively worse today, with difficulty completing ADLs. She reports taking morphine 15 IR daily but is not working. She reports being on a fentanyl patch that was placed last night, but is not not controlling her pain. She reports stage IV breast cancer, in which, she stopped taking PO "chemo due to medication not helping." She reports having radiation x 5 treatments, being at treated [facility]. Her [facility] oncologist cancelled her apt on Tuesday this week. She is to follow up with Dr Muse in [place]. She verbalizes mild lower extremity swelling that is getting progressively worse. She denies recent fall, no reported loss of function of bowel or bladder. no reported fever, NVD. Plan to admit for - Sacral metastatic cancer disease, intractable low back pain, Stage IV metastatic breast cancer. Allergies No Known Allergies Allergy (Unverified 08/20/16 16:33) - Past Medical/Surgical History -: Hepatitis -: Hypertension -: Breast cancer -: Kidney cancer -: right knee -: Cholecystectomy -: Tubal ligation -: Partial nephrectomy left - Social History Smoking Status: Former smoker Alcohol use: No Caffeine use: Yes Place of Residence: Home Review of Systems 10-point ROS is otherwise unremarkable Physical Examination - Physical Exam General: Alert, Oriented x3, Mild distress HEENT: Atraumatic, Normocephalic Neck: Supple, JVD not distended Respiratory: Clear to auscultation bilaterally, Normal air movement Cardiovascular: Normal pulses, Regular rate/rhythm Gastrointestinal: Normal bowel sounds, Soft and benign Musculoskeletal: Tenderness, Other (intractable low back pain ) Integumentary: No breakdown, No significant lesion Neurological: Normal speech, Normal strength at 5/5 x4 extr - Studies Laboratory Data (last 24 hrs) 08/08/24 08/08/24 11:46 11:46 WBC 6.00 Hgb 12.6 Hct 38.8 Plt Count 316 Sodium 138 Potassium 4.1 BUN 26 H Creatinine 0.75 Glucose 94 Total Bilirubin 0.3 AST 21 ALT 24 Alkaline Phosphatase 105 Lipase 30 Assessment and Plan - Problems (Diagnosis) (1) 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 Current Visit: Yes Status: Acute (2) Intractable low back pain Current Visit: Yes Status: Acute (3) Stage IV breast cancer in female Current Visit: Yes Status: Acute (4) History of renal carcinoma Current Visit: Yes Status: Acute (5) Impaired mobility and activities of daily living Current Visit: Yes Status: Acute - Plan Admit to med surg PRN analgesics, antiemetics, antipuritics lower ext edema, B)LE dopplers r/o DVT follow up with Oncology after discharge hypertension, prn antihypertensives telemetry PT eval for DME needs Lumbar MRI Abnormal bone lesions involving the sacrum bilaterally, larger on the right, with postcontrast enhancement most likely related to metastatic disease/neoplasia. Significant lower lumbar degenerative spondylosis with anterolisthesis L4 on 5 and L5 on S1. regular diet Full code DVT SCD Disposition, home independent prior Discharge Plan: Home - Advance Directives Does patient have a Living Will: No Does patient have a Durable POA for Healthcare: No - Code Status/Comfort Care Code Status: Full Code Critical Care: No Time Spent Managing Pts Care (In Minutes): 65
[2024-08-08] MEDS: ONDANSETRON 4 MG/2 ML VIAL IV PRN (18:06)
[2024-08-08] MEDS: FENTANYL CITR 100 MCG/2 ML IV PRN (18:23)
[2024-08-08] MEDS: LOSARTAN POTASSIUM 50 MG TABLET PO SCH (19:28)
[2024-08-09] MEDS: hydrOXYzine HCL 25 MG TAB PO PRN (04:45)
[2024-08-09 05:37] LABS: Absolute Eosinophils 0.2 K/uL (0-0.5); Absolute Lymphocytes (CBC) 1.2 K/uL (0.7-4.9); Absolute Monocytes 0.5 K/uL (0.1-1.3); Absolute Neutrophil 3.1 K/uL (1.8-8.0); Basophils % 0.7 % (0-1.3); Hematocrit 35.1 % (36.0-45.0); Hemoglobin 11.8 g/dL (12.0-15.0); MCH 29.6 pg (27.0-35.0); MCHC 33.6 g/dL (32.0-36.0); MCV 88.1 fL (80-100); MPV 7.6 fL (7.6-11.3); Monocytes % 10.6 % (3.3-12.3); Neutrophils % 60.7 % (41.7-73.7); Nucleated Red Blood Cells % 0.1 % (0-0); Platelets 272 thou/uL (152-406); RBC Red Blood Cell Count 3.99 M/uL (3.86-4.86); Red Cell Distribution Width 15.7 % (12.1-15.2)
[2024-08-09 05:49] LABS: Albumin 3.1 g/dL (3.4-5.0); Albumin/Globulin Ratio 0.9 (1.1-1.8); Anion Gap 7.5 mEq/L (5.0-15.0); Bilirubin Total 0.3 mg/dL (0.2-1.0); Globulin 3.5 g/dL (2.3-3.5); Magnesium 2.1 mg/dL (1.6-2.4); Potassium 3.5 mEq/L (3.5-5.1); Protein, Total 6.6 g/dL (6.4-8.2)
[2024-08-09 07:57] LABS: Specific Gravity > 1.030 (1.005-1.030); Sqamous Epithelial <5 /HPF (None Seen); Urine Bacteria None Seen /HPF (<20); Urine Bilirubin NEGATIVE (Negative); Urine Blood Trace (Negative); Urine Clarity Turbid (Clear); Urine Color Yellow (Yellow); Urine Culture Reflex Order NOT NEEDED; Urine Glucose NEGATIVE (Negative); Urine Ketones NEGATIVE (Negative); Urine Microscopic Reflex YN ORDER UMIC; Urine Mucus Slight /HPF (None Seen); Urine Nitrite NEGATIVE (Negative); Urine Protein TRACE (Negative); Urine Urobilinogen Normal (Normal); Urine WBC <5 /HPF (<5)
[2024-08-09] MEDS ORDERED: POTASSIUM CL SA 10 MEQ TAB PO ONE (08:00)
--- NOTE | 2024-08-09 08:44 | RAD REPORT ---
EXAMINATION: US Extrem Venous W Compress [place] CLINICAL INDICATION: [facility] MAIN lower extremity edema Y TECHNIQUE: Complete bilateral duplex sonography of the BILATERAL lower extremity veins was performed. The examination included compression for vein patency, color Doppler imaging and flow augmentation in response to distal compression of the distal external iliac, common femoral, femoral, popliteal, t ibial, and great and small saphenous veins. COMPARISON: No prior exam. FINDINGS: Duplex sonography testing of the veins of the BILATERAL lower extremity was performed. Color flow frieda ging shows all veins to be compressible with [id number] color filling. Pulsatile and phasic flow is present within all lower extremity deep and superficial veins examined. IMPRESSION: There is no deep vein or superficial vein thrombosis.
[2024-08-09] MEDS: POTASSIUM CL SA 10 MEQ TAB PO ONE (10:18)
[2024-08-09] MEDS: MORPHINE 15 MG IR TAB PO PRN (10:18)
[2024-08-09 10:36] VITALS: O2SAT 96
[2024-08-09] MEDS: FLU (Fluarix Triv) TS24-25(6MOS UP)/PF 45 MCG/0.5 ML Syringe IM ONE (12:00)
[2024-08-09] MEDS: FENTANYL CITR 100 MCG/2 ML IV ONE (15:22)
[2024-08-09] MEDS: MORPHINE 10 MG/ML VIAL IV PRN (17:52)
[2024-08-09] MEDS: ONDANSETRON 4 MG/2 ML VIAL IV PRN (17:52)
[2024-08-09] MEDS: BISACODYL E.C. 5 MG TAB PO PRN (17:53)
[2024-08-09] MEDS: FENTANYL 50 MCG/PATCH TD ONE (18:08)
--- NOTE | 2024-08-09 19:29 | P.PN ---
Subjective Date of Service: 08/09/24 Chief Complaint: intractable back pain Complains of sacral pain, will increase as needed analgesics, no reported weakness bilateral lower extremities Review of Systems 10-point ROS is otherwise unremarkable Physical Examination - Vital Signs Temperature: 97.6 F Blood Pressure: 137/74 Pulse: 81 Respirations: 18 Pulse Ox (%): 98 - Physical Exam General: Alert, Oriented x3, Other (Facial grimacing due to pain) HEENT: Atraumatic, Normocephalic Neck: 2+ carotid pulse no bruit Respiratory: Clear to auscultation bilaterally, Normal air movement Cardiovascular: Normal pulses, Regular rate/rhythm, Normal S1 S2 Capillary refill: <2 Seconds Gastrointestinal: Normal bowel sounds, Soft and benign Musculoskeletal: Other (Lumbar sacral pain palpitation) Integumentary: No breakdown, No significant lesion Neurological: Normal speech, Normal strength at 5/5 x4 extr, Sensation intact, Cranial nerves 3-12 intact - Studies Laboratory Data (last 24 hrs) 08/09/24 08/09/24 05:09 05:09 WBC 5.10 Hgb 11.8 L Hct 35.1 L Plt Count 272 Sodium 138 Potassium 3.5 D BUN 24 H Creatinine 0.70 Glucose 90 Magnesium 2.1 Total Bilirubin 0.3 AST 21 ALT 20 Alkaline Phosphatase 111 Assessment And Plan - Current Problems (Diagnosis) (1) 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 Muse, follow-up appointment scheduled after d ischarge Order rolling walker for discharge plan for unsteady gait Bilateral lower extremity edema,-lower extremity Doppler negative for DVT Lumbar MRI Abnormal bone lesions involving the sacrum bilaterally, larger on the right, with postcontrast enhancement most likely related to metastatic disease/neoplasia. Significant lower lumbar degenerative spondylosis with anterolisthesis L4 on 5 and L5 on S1. regular diet Full code DVT Lovenox Disposition, home independent prior Discharge Plan: Home - Code Status/Comfort Care Code Status: Full Code Critical Care: No Time Spent Managing PTS Care (In Minutes): 35
--- NOTE | 2024-08-09 19:39 | P.DS ---
Admission Date: 08/09/24 Discharge Date: 08/10/24 Disposition: ROUTINE DISCHARGE Discharge Condition: GOOD Reason for Admission: intractable back pain Brief History of Present Illness: 58 yrs old Female with past medical history of Hepatitis; Hypertension; stage IV breast cancer; kidney cancer with partial nephrectomy; presents to ER via Wheelchair with complaints of Low Back Pain. She reports low back pain started last night that has gotten progressively worse today, with difficulty completing ADLs. She reports taking morphine 15 IR daily but is not working. She reports being on a fentanyl patch that was placed last night, but is not not controlling her pain. She reports stage IV breast cancer, in which, she stopped taking PO "chemo due to medication not helping." She reports having radiation x 5 treatments, being at [facility]. Her [facility] oncologist cancelled her apt on Tuesday this week. She is to follow up with Dr Muse in [place]. She verbalizes mild lower extremity swelling that is getting progressively worse. She denies recent fall, no reported loss of function of bowel or bladder. no reported fever, NVD. Plan to admit for - Sacral metastatic cancer disease, intractable low back pain, Stage IV metastatic breast cancer. - Physical Exam General: Alert, Oriented x3, facial grimacing due to pain HEENT: Atraumatic, Normocephalic Neck: Supple, JVD not distended Respiratory: Clear to auscultation bilaterally, Normal air movement Cardiovascular: Normal pulses, Regular rate/rhythm Gastrointestinal: Normal bowel sounds, Soft and benign Musculoskeletal: Tenderness, Other (intractable low back pain ) Integumentary: No breakdown, No significant lesion Neurological: Normal speech, Normal strength at 5/5 x4 extr Hospital Course: 58 yrs old Female with past medical history of Hepatitis; Hypertension; stage IV breast cancer; kidney cancer with partial nephrectomy; presents to ER via Wheelchair with complaints of Low Back Pain. She reports low back pain started last night that has gotten progressively worse today, with difficulty completing ADLs. She reports taking morphine 15 IR daily but is not working. She reports being on a fentanyl patch that was placed last night, but is not not controlling her pain. She reports stage IV breast cancer, in which, she stopped taking PO "chemo due to medication not helping." She reports having radiation x 5 treatments, being at [facility]. Her [facility] oncologist cancelled her apt on Tuesday this week. She is to follow up with Dr Muse in [place]. She was admitted for intractable low back pain due to metastatic disease to the sacral spine. Tolerating diet, pain controlled with p.o. analgesics. Patient needs to follow-up with oncology after discharge Front wheeled rolling walker ordered for discharge Follow-up with oncology after discharge Dr Muse Discharged home on fentanyl patch 75 mg 1 every 3 days Ensure with meals. Colace 1 p.o. 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 Significant lower lumbar degenerative spondylosis with anterolisthesis L4 on 5 and L5 on S1. Continue home medicines as previously prescribed GOAL: Clear understanding of disease process INSTRUCTIONS: Physician Discharge Instructions: -Follow-up with oncology after discharge call office for -Follow-up with PCP in 1 to 2 weeks -Please call Dr. Soto at [phone] if any questions regarding hospital stay -Please call nursing station at [phone] if any nursing or medication questions -Return to the emergency room if symptoms worsen Diet: ADA, low sodium Activity: Fall precautions Vital Signs/Physical Exam: Temp Pulse Resp BP Pulse Ox 97.6 F 81 18 137/74 98 08/09/24 19:32 08/09/24 19:32 08/09/24 19:32 08/09/24 19:32 08/09/24 19:32 Laboratory Data at Discharge: WBC 5.10 thou/uL (4.3-10.9) 08/09/24 05:09 Hgb 11.8 g/dL (12.0-15.0) L 08/09/24 05:09 Hct 35.1 % (36.0-45.0) L 08/09/24 05:09 Plt Count 272 thou/uL (152-406) 08/09/24 05:09 Sodium 138 mEq/L (136-145) 08/09/24 05:09 Potassium 3.5 mEq/L (3.5-5.1) D 08/09/24 05:09 BUN 24 mg/dL (7-18) H 08/09/24 05:09 Creatinine 0.70 mg/dL (0.55-1.02) 08/09/24 05:09 Glucose 90 mg/dL (74-106) 08/09/24 05:09 Magnesium 2.1 mg/dL (1.6-2.4) 08/09/24 05:09 Total Bilirubin 0.3 mg/dL (0.2-1.0) 08/09/24 05:09 AST 21 U/L (15-37) 08/09/24 05:09 ALT 20 U/L (13-56) 08/09/24 05:09 Alkaline Phosphatase 111 U/L (45-117) 08/09/24 05:09 Lipase 30 U/L (13-75) 08/08/24 11:46 Home Medications: Morphine Sulfate [Morphine Sulfate Cr] 15 mg PO Q4HR PRN 08/08/24 Ondansetron [Zofran (Odt)*] 1 tab SL Q6HR PRN 08/08/24 Risperidone [Risperidone Odt] 1 tab PO BEDTIME 08/08/24 Tiotropium [Spiriva Handihaler*] 1 puff IH DAILY 08/08/24 Docusate [Colace Cap] 100 mg PO BID #60 cap 08/10/24 Ensure Enlive 237 ml PO BID #60 can 08/10/24 bisacodyL [Dulcolax*] 10 mg PO DAILY PRN #7 tab 08/10/24 fentaNYL [Fentanyl] 75 mcg TD Q72H #3 patch 08/10/24 New Medications: Docusate [Colace Cap] 100 mg PO BID #60 cap bisacodyL [Dulcolax*] 10 mg PO DAILY PRN #7 tab PRN Reason: Constipation Ensure Enlive 237 ml PO BID #60 can fentaNYL [Fentanyl] 75 mcg TD Q72H #3 patch Physician Discharge Instructions: 58 yrs old Female with past medical history of Hepatitis; Hypertension; stage IV breast cancer; kidney cancer with partial nephrectomy; presents to ER via Wheelchair with complaints of Low Back Pain. She reports low back pain started last night that has gotten progressively worse today, with difficulty completing ADLs. She reports taking morphine 15 IR daily but is not working. She reports being on a fentanyl patch that was placed last night, but is not not controlling her pain. She reports stage IV breast cancer, in which, she stopped taking PO "chemo due to medication not helping." She reports having radiation x 5 treatments, being at treated [facility]. Her [facility] oncologist cancelled her apt on Tuesday this week. She is to follow up with Dr Muse in [place]. She was admitted for intractable low back pain due to metastatic disease to the sacral spine. Tolerating diet, pain controlled with p.o. analgesics. 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 Significant lower lumbar degenerative spondylosis with anterolisthesis L4 on 5 and L5 on S1. Continue home medicines as previously prescribed GOAL: Clear understanding of disease process INSTRUCTIONS: Physician Discharge Instructions: -Follow-up with oncology after discharge -Follow-up with PCP in 1 to 2 weeks -Please call Dr. Soto at [phone] if any questions regarding hospital stay -Please call nursing station at [phone] if any nursing or medication questions -Return to the emergency room if symptoms worsen Diet: ADA, low sodium Activity: Fall precautions Followup: OOT,OOT [Primary Care Provider] - Kerri Concepcion MD [ACTIVE - CAN ADMIT] - Time spent managing pt's care (in minutes): 45
[2024-08-10] MEDS: ACETAMINOPHEN 500 MG TAB PO PRN (05:00)
[2024-08-10 06:00] LABS: Albumin 3.2 g/dL (3.4-5.0); Anion Gap 8.7 mEq/L (5.0-15.0); Phosphorus 4.5 mg/dL (2.5-4.9); Potassium 3.7 mEq/L (3.5-5.1)
[2024-08-10 07:19] VITALS: BMI 35.9
[2024-08-10] MEDS: POTASSIUM CL SA 10 MEQ TAB PO ONE (07:52)
[2024-08-10] MEDS: ENSURE ENLIVE 237 ML CAN PO SCH (09:00)
[2024-08-10 12:57] VITALS: BP 168/92; TEMP 99.8
== END 2024-08-10 13:06 | disposition home or self-care (01) | DRG 861 ==
LOC: ER 11:00 → ERHOLD 16:43 → 2ND 17:08 → OBSVTOIN 08-09 15:55
PROVIDERS: ADMIT Hospitalist; ATTEND Hospitalist
DX: G89.3 Neoplasm related pain (acute) (chronic) (principal); C79.51 Secondary malignant neoplasm of bone; I10 Essential (primary) hypertension; M47.816 Spondylosis without myelopathy or radiculopathy, lumbar region; Z90.5 Acquired absence of kidney; Z88.5 Allergy status to narcotic agent; Z90.49 Acquired absence of other specified parts of digestive tract; Z87.891 Personal history of nicotine dependence; Z85.528 Personal history of other malignant neoplasm of kidney; C79.81 Secondary malignant neoplasm of breast; C80.1 Malignant (primary) neoplasm, unspecified
CPT/HCPCS: 36415; 72158; 80053; 80069; 81001; 83690; 83735; 85025; 93970; 96374; 96375; 97116; 97161; 99285; A9577; G0378; J1171; J2405; J3010

== ENCOUNTER 2024-09-30 09:49 | Emergency (ER) | payer MEDICAID, OTHER ==
--- OUTSIDE RECORDS SUMMARY | 2024-09-30 09:53 | XMS REPORT | Clinical Summary ---
Author Name Unknown Organization [facility] [place] Address [address] [place] [address] Care Team Providers Care X Ray Nurse Name Role Phone Vidhi Cortez RN Unavailable Ha Butler MD Unavailable [phone] Allergies Active Allergy Reactions Criticality Noted [...] Department Care Team Description 01/20/2024 Documentation [facility] - Medical Oncology [address] [place] [address], 5th [place] [address] Vidhi Cortez, KARIME 01/18/2024 2:20 AM CDT Ancillary Procedure Image [facility] [address] [place] [id number] Natalia Barriga MD Cancer 01/18/2024 2:15 AM CDT Ancillary Procedure [facility] [address] [place] [id number] Natalia Barriga MD Cancer 01/18/2024 2:10 AM CDT Ancillary Procedure [facility] [address] [place] [id number] Natalia Barriga MD Cancer 01/10/2024 Orders Only [facility] [place] - Medical Oncology [address] [place] [address], [facility] [place] [address] Tanisha Christensen RN 01/10/2024 Telephone Breast [place] - Medical Oncology [address] [place] [address], 5th [place] [address] Vidhi Cortez RN New Patient 01/09/2024 Travel 01/08/2024 10:40 PM CDT - 01/09/2024 3:17 PM CDT Emergency MAIN P06B [address] [place] [address] Natalia Barriga MD Wattana, Monica, MD Chest wall pain (Primary Dx); Mass of right breast; Bilateral lower leg edema; Intractable breast pain; Slow transit constipation; Normal diet; Nausea Discharge Disposition: Home 01/08/2024 Travel after 10/01/2023 Surgical History Surgery Date Site/Laterality Comments NEPHRECTOMY [...] Health Maintenance Due Date Last Done Comments Pneumococcal Vaccine: 50+ Ye ars (1 of 1 - PCV) 2016 COVID-19 Vaccine ( - 2023-2 5 season) 2024 Influenza Vaccine (#1) 2024 Pneumococcal Vaccine Aged Out No long er eligible based on patient's age to complete this [...] Routine 12/18/2023 2:36 AM CDT Cancer after 10/01/2023 Results * CT Chest Pulmonary Embolism with [...] 130)consistent with metastasis has associated pathologic fracture ([id number]). IMPRESSION: 1. No pulmonary embolism is identified. [...] Natalia Barriga MD IMG CT ORDERABLES Final Resu lt * CT Abdomen Pelvis with Contrast (01/09/2024 [...] Natalia Barriga MD IMG CT ORDERABLES Final Resu lt * US Leg Venous Doppler Bilateral (01/09/2024 [...] the final report. us Natalia Barriga MD IM US ORDERABLES Final Resu lt * X-ray Chest 1 View (01/09/2024 12:27 [...] us Natalia Barriga MD IMG DIAGNOSTIC IMAGING ORDER LAUREN Final Result * (ABNORMAL) .CBC (01/08/2024 11:35 PM CDT) White Blood Cell 6.4 4.1 - 10.5 K/uL 01/09/2024 12:28 AM CDT [facility] Red Blood Cell 4.30 3.99 - 5.46 M/uL 01/09/2024 12:28 AM CDT [facility] Hemoglobin 12.1(L) 12.2 - 15.3 g/dL 01/09/2024 12:28 AM T [facility] Hematocrit 37.7 36.4 - 46.8 % 01/09/2024 12:28 AM T [facility] Mean Cell Volume 88 82 - 99 fL 01/09/2024 12:28 AM T [facility] Mean Cell Hemoglobin 28.1 26.6 - 33.2 pg 01/09/2024 12:28 AM CDT [facility] Mean Cell Hemoglobin Concentration 32.1 31.1 - 35.2 g/dL 01/09/2024 12:28 AM T [facility] RDW-SD 42.5 37.5 - 49.7 fL 01/09/2024 12:28 AM T [facility] Red Cell Diameter Width 13.2 11.6 - 15.5 % 01/09/2024 12:28 AM T [facility] Platelet 338 160 - 397 K/uL 01/09/2024 12:28 AM T [facility] Mean Platelet Volume 9.7 9.1 - 12.6 fL 01/09/2024 12:28 AM T [facility] INRBC 0.0 0.0 - 0.1 /100 WBC 01/09/2024 12:28 AM [facility] Comment: The INRBC (instrument NRBC) value reflects the enumeration of nucleated red blood cells contained in a 200uL sample of whole blood analyzed by the instrument. This value may differ from the NRBC value reported in a manual differential, which is based on a 100 cell differential. Neutrophil % 54.8 43.2 - 72.7 % 01/09/2024 12:28 AM CDT [facility] Lymphocyte % 33.6 16.8 - 46.2 % 01/09/2024 12:28 AM CDT [facility] Monocyte % 7.2 5.1 - 12.5 % 01/09/2024 12:28 AM CDT [facility] Eosinophil % 3.6 0.4 - 6.3 % 01/09/2024 12:28 AM CDT [facility] Basophil % 0.6 0.2 - 1.4 % 01/09/2024 12:28 AM CDT [facility] IGRE % 0.2 0.1 - 1.5 % 01/09/2024 12:28 AM CDT [facility] Comment:The IGRE% includes M etamyelocytes, Myelocytes and Promyelocytes. Neutrophil Abs 3.48 1.95 - 7.25 K/uL 01/09/2024 12:28 AM CDT [facility] Lymphocyte Abs 2.14 1.01 - 3.24 K/uL 01/09/2024 12:28 AM CDT [facility] Monocyte Abs 0.46 0.24 - 0.85 K/uL 01/09/2024 12:28 AM CDT [facility] Eosinophil Abs 0.23 0.02 - 0.50 K/uL 01/09/2024 12:28 AM CDT [facility] Basophil Abs 0.04 0.02 - 0.09 K/uL 01/09/2024 12:28 AM CDT [facility] IG Abs 0.01 0.01 - 0.12 K/uL 01/09/2024 12:28 AM CDT [facility] Blood Peripheral blood specimen / Unknown Venipuncture / Unknown 01/08/2024 11:35 PM CDT 01/08/2024 11:39 PM CDT us Natalia Barriga MD LAB BLOOD ORDERABLES Final R esult [facility] Unless otherwise noted, all lab tests performed by: Division of Pathology and Laboratory Medicine [address] [place] [id number] * Comprehensive Metabolic Panel (01/08/2024 11:35 PM CDT) Bilirubin Total <0.3 0.0 - 1.2 mg/dL 01/09/2024 12:22 AM CDT [facility] Comment:Indocyanine Green (I CG) may cause falsely elevated bilirubin results. Total and direct bilirubin must not be measured from samples containing indocyanine green. False elevation of total bilirubin can be seen in patients with IgG concentrations above 28 g/L. eGFR 87 >=60 mL/min/1.7 3 sq. m 01/09/2024 12:22 AM CDT [facility] Comment: The eGFRcr is calculated with the [...] - 8.3 gm/dL 01/09/2024 12:22 AM CDT [facility] Calcium Level Total 9.2 8.2 - 10.2 mg/dL 01/09/2024 12:22 AM CDT [facility] Alkaline Phosphatase 104 35 - 104 U/L 01/09/2024 12:22 AM CDT [facility] Albumin Level 4.1 3.5 - 5.2 gm/dL 01/09/2024 12:22 AM CDT [facility] AST 26 <=32 U/L 01/09/2024 12:22 AM CDT [facility] ALT 17 <=33 U/L 01/09/2024 12:22 AM T [facility] Sodium Level 141 136 - 145 mmol/L 01/09/2024 12:22 AM T [facility] Potassium Level 3.9 3.4 - 4.5 mmol/L 01/09/2024 12:22 AM T [facility] Chloride 103 98 - 107 mmol/L 01/09/2024 12:22 AM T [facility] CO2 27 22 - 29 mmol/L 01/09/2024 12:22 AM CDT [facility] Anion Gap 11 4 - 14 mmol/L 01/09/2024 12:22 AM T [facility] Creatinine 0.79 0.51 - 0.95 mg/dL 01/09/2024 12:22 AM T [facility] BUN 23 6 - 23 mg/dL 01/09/2024 12:22 AM T [facility] Glucose Level 86 70 - 99 mg/dL 01/09/2024 12:22 AM T [facility] Comment: Effective 02/25/16, the glucose reference intervals have been updated based on [place] [employer] guidelines (Standards of Medical Care [...] us Natalia Barriga MD LAB BLOOD ORDERABLES Final R esult [facility] Unless otherwise noted, all lab tests performed by: Division of Pathology and Laboratory Medicine [address] [place] [id number] * NT-Pro BNP (In-House) (01/08/2024 11:35 PM CDT) NT-ProBNP 40 <=125 pg/mL 01/09/2024 1:19 AM CDT [facility] Blood Peripheral blood specimen / Unknown Venipuncture / Unknown 01/08/2024 11:35 PM CDT 01/08/2024 11:39 PM CDT us Natalia Barriga MD LAB BLOOD ORDERABLES Final R esult Performing Organization Address City/[facility]/ZIP Co de Phone Number [facility] Unless otherwise noted, all lab tests performed by: Division of Pathology and Laboratory Medicine [address] [place] [id number] * Phosphorus Level (01/08/2024 11:35 PM CDT) Phosphorus Level 3.2 2.5 - 4.5 mg/dL 01/09/2024 12:22 AM CDT [facility] Blood Peripheral blood specimen / Unknown Venipuncture / Unknown 01/08/2024 11:35 PM CDT 01/08/2024 11:39 PM CDT us Natalia Barriga MD LAB BLOOD ORDERABLES Final R esult Performing Organization Address [facility] de Phone Number [facility] Unless otherwise noted, all lab tests performed by: Division of Pathology and Laboratory Medicine [address] [place] [phone] * Magnesium Level (01/08/2024 11:35 PM CDT) Magnesium Level 2.1 1.6 - 2.6 mg/dL 01/09/2024 12:23 AM CDT [facility] Blood Peripheral blood specimen / Unknown Venipuncture / Unknown 01/08/2024 11:35 PM CDT 01/08/2024 11:39 PM CDT us Natalia Barriga MD LAB BLOOD ORDERABLES Final R esult [facility] Unless otherwise noted, all lab tests performed by: Division of Pathology and Laboratory Medicine [address] [place] [phone] * OSI CT Spine Thoracic (12/18/2023 2:36 AM CDT) Narrative Systemgenerated, Documentation - 01/18/2024 2:36 AM CDT Study acquired at another institution. For comparison only. No Arnel originated interpretation requested or available. us Natalia Barriga MD IMG OUTSIDE IMAGE ORDERABLES Final Result * OSI CT Extremities (12/18/2023 2:36 AM CDT) Narrative Systemgenerated, Documentation - 01/18/2024 2:36 AM CDT Study acquired at another institution. For comparison only. No MD Seals originated interpretation requested or available. us Natalia Barriga MD IM OUTSIDE IMAGE ORDERABLES Final Result * OSI CT Chest (12/18/2023 2:36 AM CDT) Narrative Systemgenerated, Documentation - 01/18/2024 2:36 AM CDT Study acquired at another institution. For comparison only. No MD Seals originated interpretation requested or available. us Natalia Barriga MD IM OUTSIDE IMAGE ORDERABLES Final Result after 10/01/2023 Insurance [employer] [place] [address] [address] [employer] MEDICA[employer]US [employer]SI Advance Directives * Full Code (Latest Code Status on File) Date Activated Date Inactivated Comments 01/09/2024 2:02 AM 01/09/2024 5:17 PM Care Teams X Ray Nurse Relationship Specialty Start Date End Date Ha Butler MD [address] [place] [address] PCP - External Primary Care Provider Internal Medicine 01/10/24 Vidhi Cortez, RN [address] [place] [phone] [email or web address] Intake Nurse Navigator Nursing 01/10/24 01/19/24
[2024-09-30] MEDS ORDERED: MORPHINE 4 MG/ML SYR ONE (10:15)
[2024-09-30] MEDS ORDERED: ONDANSETRON 4 MG/2 ML VIAL ONE (10:15)
[2024-09-30 10:38] LABS: Absolute Eosinophils 0.1 K/uL (0-0.5); Absolute Lymphocytes (CBC) 1.1 K/uL (0.7-4.9); Absolute Monocytes 0.4 K/uL (0.1-1.3); Absolute Neutrophil 3.5 K/uL (1.8-8.0); Basophils % 0.6 % (0-1.3); Eosinophils % 2.2 % (0-4.4); Hemoglobin 11.7 g/dL (12.0-15.0); MCH 29.1 pg (27.0-35.0); MCHC 33.5 g/dL (32.0-36.0); MCV 86.7 fL (80-100); MPV 7.6 fL (7.6-11.3); Monocytes % 7.2 % (3.3-12.3); Platelets 320 thou/uL (152-406); RBC Red Blood Cell Count 4.04 M/uL (3.86-4.86); Red Cell Distribution Width 13.9 % (12.1-15.2)
--- NOTE | 2024-09-30 10:38 | RAD REPORT ---
EXAMINATION: ONE VIEW CHEST XR CLINICAL INDICATION: CHEST PAIN TECHNIQUE: Frontal chest projection is submitted. Examination is limited by patient positioning and t echnique. COMPARISON: 01/18/2017 FINDINGS: Moderate bilateral pulmonary opacities are noted, greater on the right, suggesting pulmonary edema or pneumonia/infiltrate, greater on the right. The heart is normal in size. No displaced fractures identified. Eroded lucent appearance to several posterior right ribs, please reference PET/CT report 09/06/2024..
[2024-09-30 10:52] LABS: PT Prothrombin Time 11.5 SECONDS (10.0-13.0); Protime INR 1.01
[2024-09-30 10:55] LABS: ALT/SGPT 15 U/L (13-56); AST/SGOT 12 U/L (15-37); Albumin 3.3 g/dL (3.4-5.0); Albumin/Globulin Ratio 0.8 (1.1-1.8); Alkaline Phosphatase 135 U/L (45-117); Anion Gap 7.6 mEq/L (5.0-15.0); BUN Blood Urea Nitrogen 19 mg/dL (7-18); Bicarbonate 31 mEq/L (21-32); Bilirubin Total 0.3 mg/dL (0.2-1.0); Globulin 4.1 g/dL (2.3-3.5); Glomerular Filtration Rate 84 ml/min (=/>90); Glucose Level 109 mg/dL (74-106); Magnesium 2.2 mg/dL (1.6-2.4); NT PRO-BNP 46 pg/mL (<125); Potassium 3.6 mEq/L (3.5-5.1); Protein, Total 7.4 g/dL (6.4-8.2); Sodium Level 139 mEq/L (136-145); Troponin High Sensitivity 6.7 pg/mL (<58.9)
[2024-09-30 10:56] LABS: Bilirubin Direct < 0.2 mg/dL (0-0.2); Bilirubin Indirect, Calculated 0.1 mg/dL (0.2-0.8)
--- NOTE | 2024-09-30 11:25 | RAD REPORT ---
EXAM: CT CHEST WITH CONTRAST CLINICAL INDICATION: CHEST PAIN TECHNIQUE: Routine CT scan of the chest with intravenous contrast. One or more of the following dose reduction techniques were used: Automated exposure control, adjustment of the mA and/or kV according to patient size, and/or iterative reconstruction. Unless otherwise specified, incidental fi ndings do not require dedicated imaging follow-up. COMPARISON: 09/06/2024 PET/CT FINDINGS: LUNGS: There is a small airspace consolidation posterior right upper lobe suggesting infiltrate/pneum onia. Mild linear atelectasis is present in both posterior lung bases. PLEURA: No pleural effusion. No pneumothorax. MEDIASTINUM AND LYMPH NODES: No mediastinal mass or fluid collection. Normal size mediastinal, hilar, and axillary lymph nodes. Small spiculated mass in the right breast noted. OSSEOUS STRUCTURES AND CHEST WALL: There is a mottled lytic and sclerotic appearance to the posterior right fourth, fifth and sixth ribs. Thin lucency seen lateral fifth rib in the region of abnormality may represent pathologic fracture. UPPER ABDOMEN: Cholecystectomy clips. IMPRESSION: Small air space opacity posterior right upper lobe suggestive of infiltrate. The patient has known bony metastatic disease, there is suspected nondisplaced pathologic fracture se en through the right lateral fifth rib. Small spiculated right breast mass.
[2024-09-30] MEDS ORDERED: CEFTRIAXONE 1000 MG/VIAL ONE (12:09)
[2024-09-30] MEDS ORDERED: HYDROMORPHONE HCL 1 MG/ML INJ ONE (12:10)
[2024-09-30] MEDS ORDERED: NA CHLORIDE 0.9% 250 ML ONE (12:10)
[2024-09-30] MEDS ORDERED: AZITHROMYCIN 500 MG INJ IVPB ONE (12:10)
--- NOTE | 2024-09-30 12:27 | ER ---
Nurse's Notes [facility] Name: Cony Gerber Age: 59 yrs Sex: Female : 1965 Arrival Date: 09/30/2024 Time: 09:49 Bed 17 Private MD: Diagnosis: Pneumonia, unspecified organism;Chest pain, unspecified Presentation: 09/30 09:57 Chief complaint: Patient states: Right chest/rib pain since last night, denies trauma. jl7 Coronavirus screen: At this time, the client does not indicate any symptoms associated with coronavirus-19. Ebola Screen: No symptoms or risks identified at this time. Initial Sepsis Screen: Does the patient meet any 2 criteria? No. Patient's initial sepsis screen is negative. Does the patient have a suspected source of infection? No. Patient's initial sepsis screen is negative. Risk Assessment: Do you want to hurt yourself or someone else? Patient reports no desire to harm self or others. Onset of symptoms was September 29, 2024. 09:57 Method Of Arrival: Wheelchair [facility] 09:57 Acuity: RACHEL 2 jl7 Triage Assessment: 10:19 General: Appears in no apparent distress. uncomfortable, Behavior is cooperative, jl7 restless. Pain: Complains of pain in right lateral posterior chest and right lateral anterior chest Pain currently is 10 out of 10 on a pain scale. Cardiovascular: Patient's skin is warm and dry. Historical: - Allergies: 10:19 Codeine; jl7 - Home Meds: 10:19 morphine 15 mg oral tablet, extended release [Active]; Fentanyl Patch Topical [Active]; jl7 - PMHx: 10:19 breast cancer; Hepatitis; Hypertension; kidney cancer; jl7 - PSHx: 10:19 Cholecystectomy; partial nephrectomy -left; right knee; tubal ligation; jl7 - Immunization history:: Adult Immunizations unknown. - Infectious Disease History:: Denies. - Social history:: Smoking status: Reported history of juuling and/or vaping. Screenin:30 [facility] ED Fall Risk Assessment (Adult) History of falling in the last 3 months, bp including since admission No falls in past 3 months (0 pts) Confusion or Disorientation No (0 pts) Intoxicated or Sedated No (0 pts) Impaired Gait No (0 pts) Mobility Assist Device Used No (0 pt) Altered Elimination No (0 pt) Score/Fall Risk Level 0 - 2 = Low Risk Oriented to surroundings. Abuse screen: Denies threats or abuse. Denies injuries from another. Nutritional screening: No deficits noted. Tuberculosis screening: No symptoms or risk factors identified. Assessment: 11:25 Reassessment: Patient appears in no apparent distress at this time. Patient is alert, bp oriented x 3, equal unlabored respirations, skin warm/dry/pink. 12:29 Reassessment: DC ON HOLD FOR IV ABX. bp Vital Signs: 09:57 BP 153 / 83; Pulse 81; Resp 19; Temp 97.3; Pulse Ox 96% ; Weight 80.74 kg; Height 4 ft. jl7 11 in. ; Pain 10/10; 11:21 BP 137 / 87; Pulse 83; Resp 20; Pulse Ox 95% ; bp 13:33 BP 157 / 95; Pulse 87; Resp 20; Pulse Ox 95% ; bp 09:57 Body Mass Index 35.95 (80.74 kg, 149.86 cm) jl7 09:57 Pain Scale: Adult jl7 ED Course: 09:51 Patient arrived in ED. im 09:52 Michelle Rascon PA-C is PHCP. sb4 09:52 Chon Robertson MD is Attending Physician. sb4 09:57 Arm band placed on right wrist. EKG completed in triage. Results shown to . jl7 09:59 Quentin Mitchell, RN is Primary Nurse. bp 10:19 Triage completed. jl7 10:25 Inserted saline lock: 20 gauge in left antecubital area, using aseptic technique. Blood kj2 collected. Flushed with 10 mL NS. 10:32 XRAY Chest (1 view) In Process Unspecified. EDMS 11:13 Chest W/ Con CT In Process Unspecified. EDMS 12:30 Patient has correct armband on for positive identification. Provided Education on: NA. bp Client placed on continuous cardiac and pulse oximetry monitoring. NIBP monitoring applied. 13:34 No provider procedures requiring assistance completed. IV discontinued, intact, bp bleeding controlled, No redness/swelling at site. Pressure dressing applied. Patient maintains SpO2 saturation greater than 95% on room air. Administered Medications: 10:28 Drug: Ondansetron IVP 4 mg IVP once; over 2 minutes Route: IVP; Site: left antecubital; kj2 13:33 Follow up: Response: No adverse reaction bp 10:29 Drug: morphine IVP or IV 4 mg IVP once over 4 mins Route: IVP; Infused Over: 4 mins; kj2 Site: left antecubital; 13:33 Follow up: Response: No adverse reaction bp 12:05 Drug: HYDROmorphone IVP 1 mg IVP once Route: IVP; Site: left antecubital; bp 13:32 Follow up: Response: No adverse reaction bp 12:05 Drug: AZITHromycin IVPB 500 mg IVPB once over 1 hrs; (mix in 250 mL NS) Route: IVPB; bp Infused Over: 1 hrs; Site: left antecubital; 12:05 Drug: Rocephin IV 1 grams IV at calculated rate once; Given slow IV push per pharmacy bp instructions Route: IV; Rate: calculated rate; Site: left antecubital; Medication: 13:35 VIS not applicable for this client. bp Outcome: 12:26 Discharge ordered by MD. arnold 13:34 Discharged to home via wheelchair, bp 13:34 Condition: stable 13:34 Discharge instructions given to patient, family, Instructed on discharge instructions, follow up and referral plans. medication usage, Demonstrated understanding of instructions, follow-up care, medications, Prescriptions given X 2, 13:36 Patient left the ED. bp Signatures: Dispatcher [employer] EDMS Karina Lowe RN RN jl7 Quentin Mitchell RN RN Michelle Torres, PA-C PA-C sb4 Radha Rosen Krystal, RN RN kj2 Corrections: (The following items were deleted from the chart) 11:25 11:21 BP 153 / 83; Pulse 83bpm; Resp 20bpm; Pulse Ox 95%; bp bp
--- NOTE | 2024-09-30 12:27 | EDPHYS ---
Physician Documentation [facility] Name: Cony Gerber Age: 59 yrs Sex: Female : 1965 Arrival Date: 09/30/2024 Time: 09:49 Bed 17 Private MD: ED Physician Chon Robertson HPI: 09/30 10:05 This 59 yrs old Female presents to ER via Unassigned with complaints of Chest Pain, rib sb4 pain. 10:09 Patient reports right-sided chest pain that began last night, got worse today. states sb4 the pain began while she was throwing a ball for her dog. she is concerned because the last time something like this occurred, she had a rib fracture. she has metastatic stage IV breast cancer. states the pain is making it hard for her to breathe. denies any hemoptysis, fever, chills, nausea, vomiting. Historical: - Allergies: 10:19 Codeine; jl7 - Home Meds: 10:19 morphine 15 mg oral tablet, extended release [Active]; Fentanyl Patch Topical [Active]; jl7 - PMHx: 10:19 breast cancer; Hepatitis; Hypertension; kidney cancer; jl7 - PSHx: 10:19 Cholecystectomy; partial nephrectomy -left; right knee; tubal ligation; jl7 - Immunization history:: Adult Immunizations unknown. - Infectious Disease History:: Denies. - Social history:: Smoking status: Reported history of juuling and/or vaping. ROS: 10:21 Constitutional: Negative for fever, chills, and weight loss, sb4 10:21 Cardiovascular: Positive for chest pain, 10:21 MS/extremity: Positive for pain, of the right seventh rib and right eighth rib, 10:21 All other systems are negative, Exam: 10:21 Head/Face: Normocephalic, atraumatic. Eyes: Extra-ocular motions intact. Periorbital sb4 areas with no swelling, redness, or edema. ENT: Mucous membranes moist. Cardiovascular: Regular rate and rhythm with a normal S1 and S2. Respiratory: No increased work of breathing, no retractions or nasal flaring. Abdomen/GI: Soft, non-tender, no distension. Skin: Warm, dry with normal turgor. Normal color with no rashes, no lesions, and no evidence of cellulitis. 10:21 Constitutional: The patient appears alert, awake, in obvious pain, uncomfortable, 10:21 Chest/axilla: Inspection: normal, Palpation: tenderness, that is moderate, of the right eighth rib and right seventh rib, Vital Signs: 09:57 BP 153 / 83; Pulse 81; Resp 19; Temp 97.3; Pulse Ox 96% ; Weight 80.74 kg; Height 4 ft. jl7 11 in. ; Pain 10/10; 11:21 BP 137 / 87; Pulse 83; Resp 20; Pulse Ox 95% ; bp 13:33 BP 157 / 95; Pulse 87; Resp 20; Pulse Ox 95% ; bp 09:57 Body Mass Index 35.95 (80.74 kg, 149.86 cm) jl7 09:57 Pain Scale: Adult jl7 MDM: 09:53 Medical Screening Exam initiated sb4 11:45 Data reviewed: vital signs, nurses notes, lab test result(s), EKG, radiologic studies, sb4 and as a result, I will discharge patient. Counseling: I had a detailed discussion with the patient and/or guardian regarding the historical points, exam findings, and any diagnostic results supporting the discharge/admit diagnosis, lab results, radiology results, the need for outpatient follow up, for definitive care, to return to the emergency department if symptoms worsen or persist or if there are any questions or concerns that arise at home. 09/30 10:04 Order name: Basic Metabolic Panel; Complete Time: 10:57 sb4 09/30 10:04 Order name: CBC with Diff; Complete Time: 10:45 sb4 09/30 10:04 Order name: LFT's; Complete Time: 10:57 sb4 09/30 10:04 Order name: Magnesium; Complete Time: 10:57 sb4 09/30 10:04 Order name: NT PRO-BNP; Complete Time: 10:57 sb4 09/30 10:04 Order name: PT-INR; Complete Time: 10:52 sb4 09/30 10:04 Order name: Troponin HS; Complete Time: 10:57 sb4 09/30 10:04 Order name: XRAY Chest (1 view); Complete Time: 10:45 sb4 09/30 10:56 Order name: Chest W/ Con CT; Complete Time: 11:26 sb4 09/30 11:47 Order name: INCENTIVE SPIROMETRY sb4 09/30 10:04 Order name: Cardiac monitoring; Complete Time: 10: sb4 09/30 10:04 Order name: EKG - Nurse/Tech; Complete Time: sb4 09/30 10:04 Order name: IV Saline Lock; Complete Time: sb4 09/30 10:04 Order name: Labs collected and sent; Complete Time: : sb4 09/30 10:04 Order name: O2 Per Protocol; Complete Time: sb4 09/30 10:04 Order name: O2 Sat Monitoring; Complete Time: : sb4 EC:15 Rate is 83 beats/min. Rhythm is regular, Normal Sinus Rhythm. GA interval is normal at sb4 162 msec. QRS interval is normal at 94 msec. QT interval is normal at 376 msec. No Q waves. T waves are Normal. No ST changes noted. Clinical impression: Normal ECG and No evidence of ischemia. Interpreted by me. Reviewed by me. Administered Medications: 10:28 Drug: Ondansetron IVP 4 mg IVP once; over 2 minutes Route: IVP; Site: left antecubital; kj2 13:33 Follow up: Response: No adverse reaction bp 10:29 Drug: morphine IVP or IV 4 mg IVP once over 4 mins Route: IVP; Infused Over: 4 mins; kj2 Site: left antecubital; 13:33 Follow up: Response: No adverse reaction bp 12:05 Drug: HYDROmorphone IVP 1 mg IVP once Route: IVP; Site: left antecubital; bp 13:32 Follow up: Response: No adverse reaction bp 12:05 Drug: AZITHromycin IVPB 500 mg IVPB once over 1 hrs; (mix in 250 mL NS) Route: IVPB; bp Infused Over: 1 hrs; Site: left antecubital; 12:05 Drug: Rocephin IV 1 grams IV at calculated rate once; Given slow IV push per pharmacy bp instructions Route: IV; Rate: calculated rate; Site: left antecubital; Disposition: 17:36 Co-signature as Attending Physician, Chon Robertson MD I reviewed the patient's care rt provided by the Advanced Practice Provider and agree with the diagnosis and treatment plan. Disposition Summary: 09/30/24 12:26 Discharge Ordered Notes: Location: Home sb4 Problem: new sb4 Symptoms: have improved sb4 Condition: Stable sb4 Diagnosis - Pneumonia, unspecified organism sb4 - Chest pain, unspecified sb4 Followup: sb4 - With: Emergency Department - When: As needed - Reason: Trouble breathing, Worsening of condition Discharge Instructions: - Discharge Summary Sheet sb4 - Rib Contusion sb4 - Community-Acquired Pneumonia, Adult sb4 - How to Use an Incentive Spirometer sb4 Forms: - Antibiotic Education sb4 - Patient Portal Instructions sb4 - Leadership Thank You Letter sb4 Prescriptions: - azithromycin 250 mg Oral tablet - take 1 tablet ORAL route daily for 4 days; 4 tablet; Refills: 0, Product sb4 Selection Permitted - Augmentin 875-125 mg Oral Tablet - take 1 tablet ORAL route every 12 hours for 10 days; 20 tablet; Refills: 0, sb4 Product Selection Permitted Signatures: Dispatcher [employer] Karina Montgomery RN RN jl7 Quentin Mitchell RN RN Michelle Torres PARamonaC PARamonaC sb4 Chon Robertson MD MD rt Enedina Ratliff RN RN kj2 Corrections: (The following items were deleted from the chart) 10:04 10:04 BASIC METABOLIC PANEL+C.LAB.BRZ ordered. EDMS EDMS 10:04 10:04 CBC+H.LAB.BRZ ordered. EDMS EDMS 10:04 10:04 HEPATIC FUNCTION+C.LAB.BRZ ordered. EDMS EDMS 10:04 10:04 MAGNESIUM+C.LAB.BRZ ordered. EDMS EDMS 10:04 10:04 PROBNP+C.LAB.BRZ ordered. EDMS EDMS 10:04 10:04 PROTIME (+INR)+COAG.LAB.BRZ ordered. EDMS EDMS 10:04 10:04 Troponin High Sensitivity+C.LAB.BRZ ordered. EDMS EDMS 10:04 10:04 Chest Single View+RAD.RAD.BRZ ordered. EDMS EDMS
[2024-09-30 14:07] VITALS: TEMP 97.3
[2024-09-30 14:08] VITALS: O2SAT 95
[2024-09-30 14:10] VITALS: BP 157/95
--- NOTE | 2024-10-01 12:06 | EKG ---
Test Date: 2024-09-30 Test Time: 10:06:01 Project Facilitator: TITA MEASUREMENT RESULTS: Intervals: Rate: 83 NJ: 162 QRSD: 94 QT: 376 QTc: 441 Rowe: P: 49 NJ: 162 QRS: 71 T: 40 INTERPRETIVE STATEMENTS: Normal sinus rhythm Normal ECG Compared to ECG 09/18/2024 11:30:33 ST (T wave) deviation no longer present Electronically Signed On 10-01-24 12:03:08 TRANSPLANT CASE MANAGER by Jorge Carvajal
== END 2024-09-30 13:36 | disposition home or self-care (01) ==
LOC: ER 09:49
DX: J18.9 Pneumonia, unspecified organism (principal); Z85.3 Personal history of malignant neoplasm of breast
CPT/HCPCS: 93005; 85025; 80048; 36415; 83735; 85610; 80076; 84484; 83880; 71260; 71045; 96375; 96374; 99284; Q9967; J1171; J2405; J7050; J0696